=== PATIENT | female | born 1960 | race Caucasian/White ===

== ENCOUNTER 2018-11-05 04:00 | Observation (INO) | payer BC ==
[2018-11-05 04:55] LABS: #Eosinphils 0.3 thou/uL (0.0-0.7); #Lymphocytes 0.7 thou/uL (1.20-3.40); #Monocytes 0.9 thou/uL (0.11-0.59); #Neutrophils 8.6 thou/uL (1.40-6.50); %Basophils 0.3 % (0.0-1.0); %Eosinophils 2.6 % (0.0-10.0); %Monocytes 8.6 % (0.0-10.0); %Neutrophils 81.6 % (42.0-75.0); Hemoglobin 14.3 g/dL (12.0-16.0); Mean Corpuscular HGB CONC 32.5 g/dL (32.0-36.0); Mean Corpuscular Hemoglobin 29.9 pg (27.0-31.0); Mean Platelet Volume 7.6 fL (7.4-10.4); Platelet Count 243 thou/uL (130-400); RBC Distribution Width 13.3 % (11.5-14.5); Red Blood Cell (RBC) Count 4.77 mill/uL (4.20-5.40); White Blood Cell (WBC) Count 10.5 thou/uL (4.8-10.8)
[2018-11-05 05:17] LABS: ALT (SGPT) 19 U/L (8-55); AST (SGOT) 16 U/L (5-34); Albumin 4.3 g/dL (3.5-5.0); Alkaline Phosphatase 128 U/L (40-150); Anion Gap 12 mmol/L (10-20); BUN (Urea Nitrogen) 21 mg/dL (9.8-20.1); Bilirubin, Total 0.3 mg/dL (0.2-1.2); Calc. Creatinine Clearance 0 mL/min (70-130); Calcium 10.6 mg/dL (7.8-10.44); Carbon Dioxide 23 mmol/L (22-29); Chloride 109 mmol/L (98-107); Estimated GFR-MDRD 62; Globulin 2.3 g/dL (2.4-3.5); Glucose 117 mg/dL (70-105); Potassium 3.9 mmol/L (3.5-5.1); Protein, Total 6.6 g/dL (6.0-8.3); Sodium 140 mmol/L (136-145)
[2018-11-05] MEDS ORDERED: Nitroglycerin 0.4 MG TAB (25 Tab Bottle) PO PRN (07:18)
--- NOTE | 2018-11-05 07:57 | HP ---
PRIMARY CARE PROVIDER: Manny Thapa MD HISTORY: Referred to [facility] for chest pain, rule out NH. This morning at 3 o'clock, the patient has severe pressure chest pain in her chest, lasted 30 minutes. No sweats. Some shortness of breath. She notes that it is pleuritic in nature and still has some discomfort. States that the pain goes up into her neck and across into her jaw and across her back. She has had no nausea, no prior history of coronary artery disease. PAST MEDICAL HISTORY: Colon cancer in 2016, post resection ileostomy, and reversal of the ileostomy. She has had chemotherapy. She is currently has a diagnosis of hyperparathyroidism. Schedule for a nuclear medicine scan per physicians in [place]. She has a history of anxiety and depression. CURRENT MEDICATIONS: 1. Celexa 20 mg a day. 2. Valium 5 mg p.r.n. She takes very occasional. ALLERGIES: SHE IS ALLERGIC TO PENICILLIN CAUSES URTICARIA. FAMILY HISTORY: Mother has a pacemaker. No known true coronary artery disease. She has a paternal uncle with colon cancer. She is . Full code status. next of kin. Smokes a half a pack a day. Uses marijuana, because she does not like traditional pain medicines. REVIEW OF SYSTEMS: GENERAL: She is occasionally dizzy on arising. No fainting. No fever or chills. EYES: No double vision, blurred vision, or flashing lights. EAR, NOSE, AND THROAT: No ear pain or drainage. No nasal bleeding. No trouble swallowing. CARDIAC: See present illness. No orthopnea, paroxysmal nocturnal dyspnea. RESPIRATION: No cough, wheezing, or asthma. GASTROINTESTINAL: No nausea or vomiting. Current abdominal pain and diarrhea. She does have some chronic food discomfort depending on what she eats occasionally. MUSCULOSKELETAL: No pain or swelling in her legs. NEUROLOGICAL: No strokes, seizures, or focal weakness. PSYCHIATRIC: No anxiety or depression. Currently, she is on medications. SKIN: No bruising, bleeding, or rash. HEME/LYMPH: No tender or swollen lymph nodes in axilla, inguinal, or cervical area. PHYSICAL EXAMINATION: VITAL SIGNS: Blood pressure 100/65, pulse 74, respirations 18, temperature 97.8, currently without pain. HEENT: Examination of her head, eyes, ears, nose, and throat revealed pupils are equal, round, and reactive to light. Extraocular movements intact. Sclerae are white. Tympanic membranes clear. Nose is clear. Oral mucous membranes are wet. Dental hygiene is good. NECK: Supple without jugular venous distention, adenopathy, or thyromegaly. CHEST: Clear to auscultation and percussion. HEART: Had a regular rate and rhythm. First and second second heart sounds are clear. There are no appreciated murmurs or gallops. ABDOMEN: Soft. Bowel sounds are normal. There is no hepatosplenomegaly. No mass. No rebound. No bruits. She does have a scar in the right lower quadrant. EXTREMITIES: Reveal no cyanosis, clubbing, or edema. PULSES: Carotid, radial, femoral, and dorsalis pedis pulses intact and symmetric. SKIN: Warm and dry without bruises or rash. HEME/LYMPH: No tender or swollen lymph nodes in axilla, inguinal, or cervical area. NEUROLOGICAL: Cranial nerves 2 through 12 are intact. Deep tendon reflexes symmetric. Moves all extremities DIAGNOSTIC STUDIES: EKG regular sinus rhythm. No ST-T abnormality, within normal limits, reviewed by me. Chest x-ray, no cardiomegaly, CHF, infiltrate, or effusion reviewed by me. LABORATORY DATA: Comprehensive metabolic profile normal except for chloride of 109, BUN 21, glucose 117, and calcium 10.6. CBC is unremarkable. ADMITTING DIAGNOSES: 1. Atypical chest pain, suspect pleuritic. 2. History of colon cancer. 3. Hyperparathyroidism with hypercalcemia. 4. Tobacco abuse. PLAN: Aspirin. Serial enzymes. Cardiolite stress test if normal will discharge on NSAIDs. I have confirmed that she knows she should not be smoking. Job ID: [id number]
[2018-11-05 08:10] LABS: Troponin I Less than 0.010 ng/mL (< 0.028)
[2018-11-05] MEDS ORDERED: Aspirin 325 mg Enteric Coated Tablet PO SCH (09:00)
--- NOTE | 2018-11-05 09:00 | RAD ---
SINGLE VIEW OF THE CHEST: COMPARISON: None. HISTORY: Chest pain. FINDINGS: Single view of the chest shows a normal sized cardiomediastinal silhouette. There is no evidence of c onsolidation, mass, or pleural effusion. Degenerative changes are seen in the spine. IMPRESSION: No evidence of acute cardiopulmonary disease. POS: [facility]
[2018-11-05] MEDS ORDERED: ADENOSINE 60 MG/20 ML VIAL ONE (09:47)
[2018-11-05 11:13] LABS: Troponin I Less than 0.010 ng/mL (< 0.028)
--- NOTE | 2018-11-05 12:43 | NM ---
EXAM: Cardiac SPECT HISTORY: Chest pain PROTOCOL: Stress only, single isotope TYPE OF STRESS: Pharmacologic stress with adenosine was monitored and interpreted by Dr. Mejía. RADIOPHARMACEUTICAL: 32.5 mCi technetium 99m-sestamibi injected intravenously FINDINGS: Homogeneous tracer distribution is seen in the myocardial segments on the post stress images. Gated SPECT LVEF: 81% Wall motion exam: Normal IMPRESSION: Normal post stress myocardial perfusion scan.
[2018-11-05] MEDS ORDERED: Aspirin 325 MG TAB ONE (12:58)
--- NOTE | 2018-11-06 08:37 | DIS ---
DATE OF ADMISSION: 11/05/2018 DATE OF DISCHARGE: 11/05/2018 PRIMARY CARE PHYSICIAN: Dr. Thapa. Discharged home. FINAL DIAGNOSES: Pleuritic chest pain, history of colon cancer, hyperparathyroidism, tobacco abuse, and hypercalcemia. DISCHARGE MEDICATIONS: The patient was instructed to either take ibuprofen or naproxen [id number] for her chest pain. She takes Celexa 20 mg a day. ALLERGIES: PENICILLIN CAUSES URTICARIA. PENDING AT TIME OF DISCHARGE: Nothing. CODE STATUS: Full. DIET: As tolerated. HOSPITAL COURSE: The patient presented to the emergency room with pleuritic chest pain. EKG was unrevealing. Serial enzymes were normal. She underwent a cardiac stress test, which is normal. On my initial conversation with her, I had indicated I thought this was a pleuritic pain and not a cardiac pain. Chest x-ray is clear. Laboratory was really unremarkable. Normal CBC. Minimal changes on comprehensive metabolic profile, glucose 117 and calcium 10.6. Discussed the diagnosis with her. She is comfortable with the discharge. She has been asked to follow up with Dr. Thapa within 1 week. Job ID: [id number]
== END 2018-11-05 14:00 | disposition home or self-care (01) ==
LOC: ERS 04:00 → ERHOLD 06:56
PROVIDERS: ADMIT Internal Medicine; ATTEND Internal Medicine
DX: R07.1 Chest pain on breathing (principal); F41.9 Anxiety disorder, unspecified; F32.9 Major depressive disorder, single episode, unspecified; E21.3 Hyperparathyroidism, unspecified; F17.210 Nicotine dependence, cigarettes, uncomplicated; Z85.038 Personal history of other malignant neoplasm of large intestine; Z79.899 Other long term (current) drug therapy; Z88.0 Allergy status to penicillin; Z90.49 Acquired absence of other specified parts of digestive tract
CPT/HCPCS: 36415; 71045; 78452; 80053; 84484; 85025; 93005; 93017; A9500; G0378; J0153

== ENCOUNTER 2020-10-29 04:11 | Emergency (ER) | payer BC, SELFPAY ==
[2020-10-29] MEDS ORDERED: Boostrix 0.5 ML (Tdap) VIAL ONE (05:16)
== END 2020-10-29 06:04 | disposition home or self-care (01) ==
LOC: ERS 04:11
DX: L02.412 Cutaneous abscess of left axilla (principal); L73.9 Follicular disorder, unspecified; F17.210 Nicotine dependence, cigarettes, uncomplicated; Z79.899 Other long term (current) drug therapy
CPT/HCPCS: 90471; 90715

== ENCOUNTER 2022-07-20 08:01 | Emergency (ER) | payer SELFPAY ==
[2022-07-20] MEDS ORDERED: Ketorolac Tromethamine 30 MG/ML VIAL ONE (12:20)
[2022-07-20] MEDS ORDERED: Acetaminophen 500 MG TAB ONE (12:20)
== END 2022-07-20 12:39 | disposition home or self-care (01) ==
LOC: ERS 08:01
DX: M79.604 Pain in right leg (principal); F17.210 Nicotine dependence, cigarettes, uncomplicated
CPT/HCPCS: 36415; 85379; 96372; J1885

== ENCOUNTER 2023-10-16 06:43 | Day surgery (SDC) | payer OTHER ==
[2023-10-15 09:21] VITALS: BMI 32.2
[2023-10-16 08:34] LABS: #Basophils 0.07 10x3/uL (0.0-0.2); %Basophils 0.8 % (0.0-1.0); %Eosinophils 2.5 % (0.0-10.0); %Lymphocytes 8.7 % (21.0-51.0); %Monocytes 8.8 % (0.0-10.0); %Neutrophils 78.4 % (42.0-75.0); Hematocrit 40.6 % (36.0-47.0); Hemoglobin 13.1 g/dL (12.0-16.0); Mean Corpuscular HGB CONC 32.3 g/dL (32.0-36.0); Mean Corpuscular Hemoglobin 27.1 pg (27.0-31.0); Mean Corpuscular Volume 84.1 fL (78.0-98.0); Mean Platelet Volume 9.8 fL (7.4-10.4); Platelet Count 393 10x3/uL (130-400); RBC Distribution Width 14.3 % (11.5-14.5); Red Blood Cell (RBC) Count 4.83 mill/uL (4.20-5.40)
[2023-10-16 09:02] LABS: PTT 30.7 sec (22.9-36.1); Prothrombin Time 13.5 sec (12.0-14.7)
[2023-10-16 09:49] LABS: Anion Gap 20 mmol/L (10-20); BUN (Urea Nitrogen) 10 mg/dL (9.8-20.1); Calc. Creatinine Clearance 108 mL/min (70-130); Carbon Dioxide 23 mmol/L (23-31); Chloride 100 mmol/L (98-107); Estimated GFR 91; Glucose 103 mg/dL (80-115); Potassium 3.1 mmol/L (3.5-5.1); Sodium 140 mmol/L (136-145)
[2023-10-16 12:22] LABS: Calcium 9.6 mg/dL (7.8-10.44)
== END 2023-10-16 14:05 | disposition home or self-care (01) ==
LOC: SDC 06:43
PROVIDERS: ATTEND Urology
PROC: 0T778ZZ Dilation of Left Ureter, Via Natural or Artificial Opening Endoscopic (ICD-10-PCS; principal; 2023-10-16)
DX: N13.5 Crossing vessel and stricture of ureter without hydronephrosis (principal); N20.0 Calculus of kidney; Z87.891 Personal history of nicotine dependence; Z79.899 Other long term (current) drug therapy
CPT/HCPCS: 74018; 74420; 80048; 85025; 85610; 85730; 93005; 93010; C1747; C1769; C2617; J1100; J1885; J1956; J2001; J2250; J2405; J2704; J3010

== ENCOUNTER 2023-11-05 12:30 | Outpatient (CLI) | payer OTHER | END 2023-11-05 12:31 | disposition home or self-care (01) | LOC: PET 12:30 | PROVIDERS: ATTEND Internal Medicine | DX: C54.8 Malignant neoplasm of overlapping sites of corpus uteri (principal); C77.2 Secondary and unspecified malignant neoplasm of intra-abdominal lymph nodes; C77.5 Secondary and unspecified malignant neoplasm of intrapelvic lymph nodes; C77.0 Secondary and unspecified malignant neoplasm of lymph nodes of head, face and neck; C78.7 Secondary malignant neoplasm of liver and intrahepatic bile duct; K66.8 Other specified disorders of peritoneum | CPT/HCPCS: 78815; A9552 ==

== ENCOUNTER 2023-11-07 13:17 | Outpatient (CLI) | payer OTHER | END 2023-11-07 13:18 | disposition home or self-care (01) | LOC: MRI 13:17 → BICMRI 13:18 | PROVIDERS: ATTEND Internal Medicine | DX: C52 Malignant neoplasm of vagina (principal); C53.9 Malignant neoplasm of cervix uteri, unspecified; C77.5 Secondary and unspecified malignant neoplasm of intrapelvic lymph nodes; R93.89 Abnormal findings on diagnostic imaging of other specified body structures | CPT/HCPCS: 72197 ==

== ENCOUNTER 2023-12-07 13:24 | Inpatient (IN) | payer OTHER ==
[2023-12-07 14:10] LABS: #Basophils 0.03 10x3/uL (0.0-0.2); %Basophils 0.9 % (0.0-1.0); %Eosinophils 2.5 % (0.0-10.0); %Lymphocytes 9.9 % (21.0-51.0); %Monocytes 15.2 % (0.0-10.0); %Neutrophils 68.4 % (42.0-75.0); Hematocrit 32.6 % (36.0-47.0); Hemoglobin 10.5 g/dL (12.0-16.0); Mean Corpuscular HGB CONC 32.2 g/dL (32.0-36.0); Mean Corpuscular Hemoglobin 27.8 pg (27.0-31.0); Mean Corpuscular Volume 86.2 fL (78.0-98.0); Platelet Count 164 10x3/uL (130-400); RBC Distribution Width 16.4 % (11.5-14.5); Red Blood Cell (RBC) Count 3.78 mill/uL (4.20-5.40)
[2023-12-07 14:29] LABS: ALT (SGPT) 20 U/L (8-55); AST (SGOT) 20 U/L (5-34); Albumin 2.8 g/dL (3.4-4.8); Alkaline Phosphatase 87 U/L (40-110); Anion Gap 12 mmol/L (10-20); BUN (Urea Nitrogen) 9 mg/dL (9.8-20.1); Bilirubin, Total 0.7 mg/dL (0.2-1.2); Calc. Creatinine Clearance 0 mL/min (70-130); Calcium 8.4 mg/dL (7.8-10.44); Carbon Dioxide 31 mmol/L (23-31); Chloride 100 mmol/L (98-107); Estimated GFR 89; Globulin 3.2 g/dL (2.4-3.5); Glucose 106 mg/dL (80-115); Magnesium 1.6 mg/dL (1.6-2.6); Potassium 3.2 mmol/L (3.5-5.1); Sodium 140 mmol/L (136-145)
[2023-12-07] MEDS ORDERED: Lidocaine 2% Viscous 100 ML BOTTLE SSP SCH (14:45)
[2023-12-07] MEDS ORDERED: diphenhydrAMINE 12.5 MG/5 ML UDCUP ONE (14:53)
[2023-12-07] MEDS ORDERED: Potassium Bicarbonate/Cit Ac 20 MEQ TAB ONE (17:05)
[2023-12-07] MEDS ORDERED: Ondansetron PF 4 MG/2 ML Vial IVP PRN (18:44)
[2023-12-07] MEDS ORDERED: Acetaminophen 325 MG TAB PO PRN (18:44)
[2023-12-07] MEDS ORDERED: Ondansetron ODT 4 MG TAB PO PRN (18:44)
[2023-12-07 19:38] VITALS: BMI 29.7
[2023-12-07] MEDS: HYDROcodone/Acetaminophen 10/325 mg Tablet PO SCH (20:46)
[2023-12-07] MEDS: Potassium Phosphate 30 MMOL in Sodium Chloride 0.9% 500 ML IVPB SCH (21:18)
[2023-12-07] MEDS: Lidocaine Viscous Sol 2% 15 ml UD Cup SSW SCH (21:20)
[2023-12-07] MEDS: Lidocaine Viscous Sol 2% 15 ml UD Cup SSP SCH (21:20)
[2023-12-07 22:12] LABS: Phosphorus 3.6 mg/dL (2.3-4.7)
[2023-12-07] MEDS ORDERED: Docusate 100 MG CAP PO PRN (23:36)
[2023-12-07] MEDS: MAGIC MOUTH WASH W/NYSTATIN SUSP 10 ML UDCUP SSP SCH (23:42)
[2023-12-08] MEDS: HYDROcodone/Acetaminophen 10/325 mg Tablet PO PRN (05:06)
[2023-12-08 05:21] LABS: Hematocrit 30.8 % (36.0-47.0); Hemoglobin 9.8 g/dL (12.0-16.0); Mean Corpuscular HGB CONC 31.8 g/dL (32.0-36.0); Mean Corpuscular Hemoglobin 27.5 pg (27.0-31.0); Mean Corpuscular Volume 86.3 fL (78.0-98.0); Mean Platelet Volume 9.2 fL (7.4-10.4); Platelet Count 162 10x3/uL (130-400); RBC Distribution Width 16.7 % (11.5-14.5); Red Blood Cell (RBC) Count 3.57 mill/uL (4.20-5.40)
[2023-12-08 05:38] LABS: Anion Gap 14 mmol/L (10-20); BUN (Urea Nitrogen) 8 mg/dL (9.8-20.1); Calc. Creatinine Clearance 105 mL/min (70-130); Calcium 7.9 mg/dL (7.8-10.44); Carbon Dioxide 27 mmol/L (23-31); Chloride 103 mmol/L (98-107); Estimated GFR 96; Glucose 101 mg/dL (80-115); Potassium 3.3 mmol/L (3.5-5.1); Sodium 141 mmol/L (136-145)
[2023-12-08 05:58] LABS: Anisocytosis SLIGHT = 6-15 cells HPF (0-5); Band 4 % (5-11); Elliptocytes SLIGHT = 2-5 cells HPF (0-1); Eosinophils 1 % (0-10); Large Platelets 2.9 % (0-5); Lymphocytes 14 % (21-51); Metamyelocyte 2 % (0-0); Monocytes 9 % (0-10); Myelocyte 2 % (0-0); Neutrophil 67 % (42-75); Platelet Adequacy Comment Platelets Normal; Polychromasia SLIGHT = 2-3 cells HPF (0-2); Reactive Lymphocytes 1 % (0-10); Smudge Cells 22.1 %
[2023-12-08] MEDS: Enoxaparin 40 MG (0.4 mL) SYRINGE SC SCH (08:36)
[2023-12-08] MEDS ORDERED: Electrolyte Replacement Protocol FS PRN (12:30)
[2023-12-08] MEDS ORDERED: Electrolyte Replacement Protocol 1 EACH FS SCH (12:30)
[2023-12-08] MEDS: Nystatin 500,000 UNITS/5 ML UDCUP SSW SCH (14:33)
[2023-12-08] MEDS: diphenhydrAMINE 50 MG/ML VIAL IVP SCH (14:33)
[2023-12-08] MEDS: methylPREDNISolone Sod Succ 40 MG VIAL IVP SCH (14:34)
[2023-12-08] MEDS: Magnesium 2 GM/50 ML(in water) 2 GM in Premix 1 BAG IVPB SCH (14:34)
[2023-12-08] MEDS: Potassium Chloride 20 MEQ TAB PO SCH (14:43)
[2023-12-08] MEDS ORDERED: Milk Of Magnesia 30 ML UDCUP PO PRN (17:42)
[2023-12-09 06:42] LABS: Hematocrit 31.2 % (36.0-47.0); Hemoglobin 9.9 g/dL (12.0-16.0); Mean Corpuscular HGB CONC 31.7 g/dL (32.0-36.0); Mean Corpuscular Hemoglobin 27.3 pg (27.0-31.0); Mean Platelet Volume 9.5 fL (7.4-10.4); Platelet Count 205 10x3/uL (130-400); RBC Distribution Width 16.4 % (11.5-14.5); Red Blood Cell (RBC) Count 3.63 mill/uL (4.20-5.40)
[2023-12-09 07:25] LABS: Anion Gap 16 mmol/L (10-20); BUN (Urea Nitrogen) 9 mg/dL (9.8-20.1); Calc. Creatinine Clearance 103 mL/min (70-130); Calcium 8.7 mg/dL (7.8-10.44); Carbon Dioxide 25 mmol/L (23-31); Chloride 102 mmol/L (98-107); Estimated GFR 94; Glucose 163 mg/dL (80-115); Magnesium 2.1 mg/dL (1.6-2.6); Potassium 4.6 mmol/L (3.5-5.1); Sodium 138 mmol/L (136-145)
[2023-12-09 07:56] LABS: Band 7 % (5-11); Large Platelets 9.9 % (0-5); Lymphocytes 6 % (21-51); Monocytes 6 % (0-10); Neutrophil 80 % (42-75); Platelet Adequacy Comment Platelets Normal; RBC Morphology Within Normal Limits
[2023-12-09] MEDS: Ascorbic Acid 500 mg Chewable Tablet PO SCH (14:34)
[2023-12-09] MEDS: Multivit, Therapeutic 1 TAB PO SCH (14:35)
[2023-12-09] MEDS: Zinc Sulfate 220 MG CAP PO SCH (14:35)
[2023-12-09] MEDS: Pantoprazole DR 40 MG TAB PO SCH (15:30)
[2023-12-09 15:53] VITALS: BMI 29.7
[2023-12-09] MEDS ORDERED: Hydrocortisone 2.5%/Pramoxine 1% CRM 30 GM TUBE TOP PRN (21:15)
[2023-12-09] MEDS: Hydrocortisone 2.5%/Pramoxine 1% CRM 30 GM TUBE TOP PRN (23:21)
[2023-12-10 04:50] LABS: Hematocrit 30.6 % (36.0-47.0); Hemoglobin 9.9 g/dL (12.0-16.0); Mean Corpuscular HGB CONC 32.4 g/dL (32.0-36.0); Mean Corpuscular Hemoglobin 27.3 pg (27.0-31.0); Mean Corpuscular Volume 84.3 fL (78.0-98.0); Mean Platelet Volume 9.5 fL (7.4-10.4); Platelet Count 250 10x3/uL (130-400); RBC Distribution Width 16.5 % (11.5-14.5); Red Blood Cell (RBC) Count 3.63 mill/uL (4.20-5.40)
[2023-12-10 05:15] LABS: Anion Gap 16 mmol/L (10-20); BUN (Urea Nitrogen) 15 mg/dL (9.8-20.1); Calc. Creatinine Clearance 92 mL/min (70-130); Calcium 8.8 mg/dL (7.8-10.44); Carbon Dioxide 24 mmol/L (23-31); Chloride 101 mmol/L (98-107); Estimated GFR 82; Glucose 146 mg/dL (80-115); Magnesium 2.1 mg/dL (1.6-2.6); Potassium 4.6 mmol/L (3.5-5.1); Sodium 136 mmol/L (136-145)
[2023-12-10 06:17] LABS: Band 6 % (5-11); Lymphocytes 2 % (21-51); Neutrophil 92 % (42-75); Platelet Adequacy Comment Platelets Normal; RBC Morphology Within Normal Limits
[2023-12-10] MEDS: Ascorbic Acid 500 mg Chewable Tablet PO SCH (08:51)
[2023-12-10] MEDS: Multivit, Therapeutic 1 TAB PO SCH (08:52)
[2023-12-10] MEDS: Pantoprazole DR 40 MG TAB PO SCH (08:53)
[2023-12-10] MEDS: Zinc Sulfate 220 MG CAP PO SCH (08:56)
[2023-12-10] MEDS: Lactulose 20 GM (30 mL) UDCUP PO SCH (14:13)
[2023-12-10] MEDS: Lactated Ringer's 1,000 ML IV SCH (14:17)
[2023-12-10] MEDS: MAGIC MOUTH WASH W/NYSTATIN SUSP 10 ML UDCUP SSP PRN (17:37)
[2023-12-10] MEDS: Calamine/Zinc Oxide 177 ML LOTION TP SCH (21:30)
[2023-12-11 04:57] LABS: Hematocrit 28.9 % (36.0-47.0); Hemoglobin 9.3 g/dL (12.0-16.0); Mean Corpuscular HGB CONC 32.2 g/dL (32.0-36.0); Mean Corpuscular Hemoglobin 27.9 pg (27.0-31.0); Mean Corpuscular Volume 86.8 fL (78.0-98.0); Mean Platelet Volume 9.3 fL (7.4-10.4); Platelet Count 261 10x3/uL (130-400); RBC Distribution Width 16.8 % (11.5-14.5); Red Blood Cell (RBC) Count 3.33 mill/uL (4.20-5.40)
[2023-12-11 05:25] LABS: Anion Gap 13 mmol/L (10-20); BUN (Urea Nitrogen) 19 mg/dL (9.8-20.1); Calc. Creatinine Clearance 87 mL/min (70-130); Calcium 8.7 mg/dL (7.8-10.44); Carbon Dioxide 23 mmol/L (23-31); Chloride 105 mmol/L (98-107); Estimated GFR 77; Glucose 172 mg/dL (80-115); Potassium 4.4 mmol/L (3.5-5.1); Sodium 137 mmol/L (136-145)
[2023-12-11 05:34] LABS: Anisocytosis SLIGHT = 6-15 cells HPF (0-5); Band 2 % (5-11); Lymphocytes 7 % (21-51); Metamyelocyte 3 % (0-0); Microcytosis SLIGHT = 6-15 cells HPF (0-5); Monocytes 6 % (0-10); Neutrophil 82 % (42-75); Nucleated RBC (Manual Ct) 3 % (0); Platelet Adequacy Comment Platelets Normal; Polychromasia SLIGHT = 2-3 cells HPF (0-2); Smudge Cells 15.2 %
[2023-12-11] MEDS: Apixaban 5 MG TAB PO SCH (18:25)
[2023-12-11] MEDS: methylPREDNISolone Sod Succ 40 MG VIAL IVP SCH (20:33)
[2023-12-12 08:48] LABS: Anion Gap 15 mmol/L (10-20); BUN (Urea Nitrogen) 19 mg/dL (9.8-20.1); Calc. Creatinine Clearance 90 mL/min (70-130); Calcium 9.1 mg/dL (7.8-10.44); Carbon Dioxide 24 mmol/L (23-31); Chloride 106 mmol/L (98-107); Estimated GFR 80; Glucose 116 mg/dL (80-115); Sodium 141 mmol/L (136-145)
[2023-12-12] MEDS: Apixaban 5 MG TAB PO SCH (09:29)
[2023-12-12 10:11] LABS: Hematocrit 37.8 % (36.0-47.0); Hemoglobin 11.5 g/dL (12.0-16.0); Mean Corpuscular HGB CONC 30.4 g/dL (32.0-36.0); Mean Corpuscular Hemoglobin 27.6 pg (27.0-31.0); Mean Corpuscular Volume 90.6 fL (78.0-98.0); Mean Platelet Volume 9.6 fL (7.4-10.4); Platelet Count 378 10x3/uL (130-400); RBC Distribution Width 17.8 % (11.5-14.5); Red Blood Cell (RBC) Count 4.17 mill/uL (4.20-5.40)
[2023-12-12 11:17] LABS: Anisocytosis SLIGHT = 6-15 cells HPF (0-5); Band 5 % (5-11); Burr Cells SLIGHT = 2-5 cells HPF (0-1); Lymphocytes 14 % (21-51); Macrocytosis SLIGHT = 6-15 cells HPF (0-5); Metamyelocyte 3 % (0-0); Monocytes 5 % (0-10); Myelocyte 2 % (0-0); Neutrophil 72 % (42-75); Ovalocytes SLIGHT = 2-5 cells HPF (0-1); Platelet Adequacy Comment Platelets Normal; Polychromasia SLIGHT = 2-3 cells HPF (0-2); Smudge Cells 4.9 %
[2023-12-12] MEDS: MAGIC MOUTH WASH W/NYSTATIN SUSP 10 ML UDCUP SSW SCH ×2 (13:13→16:28)
[2023-12-12] MEDS ORDERED: Aluminum & Magnesium Hydroxide 60 ML, diphenhydrAMINE 150 MG, Lidocaine 2% Viscous Solu... SSW SCH (17:00)
[2023-12-12] MEDS: Lactulose 20 GM (30 mL) UDCUP PO PRN (20:55)
[2023-12-13 05:14] LABS: Mean Corpuscular HGB CONC 32.3 g/dL (32.0-36.0); Mean Corpuscular Hemoglobin 27.9 pg (27.0-31.0); Mean Corpuscular Volume 86.6 fL (78.0-98.0); Mean Platelet Volume 9.6 fL (7.4-10.4); Platelet Count 299 10x3/uL (130-400); RBC Distribution Width 17.5 % (11.5-14.5); Red Blood Cell (RBC) Count 3.58 mill/uL (4.20-5.40)
[2023-12-13 05:42] LABS: Band 8 % (5-11); Eosinophils 2 % (0-10); Hypochromia SLIGHT = 6-15 cells HPF (0-5); Lymphocytes 5 % (21-51); Metamyelocyte 4 % (0-0); Monocytes 3 % (0-10); Myelocyte 2 % (0-0); Neutrophil 75 % (42-75); Nucleated RBC (Manual Ct) 1 % (0); Platelet Adequacy Comment Platelets Normal; Polychromasia SLIGHT = 2-3 cells HPF (0-2); Promyelocytes 1 % (0-0)
[2023-12-13 16:45] VITALS: BP 150/86; TEMP 97.6
== END 2023-12-13 17:01 | disposition home or self-care (01) | DRG 158 ==
LOC: ERS 13:24 → MSONC 17:38 → OBSVTOIN 12-09 16:10
PROVIDERS: ADMIT Family Medicine; ATTEND Family Medicine
DX: B37.0 Candidal stomatitis (principal); I82.402 Acute embolism and thrombosis of unspecified deep veins of left lower extremity; C54.1 Malignant neoplasm of endometrium; L27.0 Generalized skin eruption due to drugs and medicaments taken internally; D70.1 Agranulocytosis secondary to cancer chemotherapy; T45.1X5A Adverse effect of antineoplastic and immunosuppressive drugs, initial encounter; R73.9 Hyperglycemia, unspecified; R13.10 Dysphagia, unspecified; F17.290 Nicotine dependence, other tobacco product, uncomplicated; D63.0 Anemia in neoplastic disease; E87.6 Hypokalemia; R53.1 Weakness; Z88.0 Allergy status to penicillin; Z88.8 Allergy status to other drugs, medicaments and biological substances; Z79.899 Other long term (current) drug therapy; Z90.49 Acquired absence of other specified parts of digestive tract; Z98.890 Other specified postprocedural states; Z98.891 History of uterine scar from previous surgery; Z85.038 Personal history of other malignant neoplasm of large intestine; Z92.21 Personal history of antineoplastic chemotherapy; Z92.3 Personal history of irradiation; Z85.048 Personal history of other malignant neoplasm of rectum, rectosigmoid junction, and anus
CPT/HCPCS: 36415; 80048; 80053; 83735; 84100; 84145; 85025; 86141; 96365; 96366; 96372; 96375; 96376; 97139; 99284; G0378; J1200; J1650; J2920; J3475; J7030; J7120; Q0163

== ENCOUNTER 2023-12-20 21:18 | Inpatient (IN) | payer OTHER ==
[2023-12-20 22:16] LABS: #Basophils 0.04 10x3/uL (0.0-0.2); %Basophils 0.3 % (0.0-1.0); %Eosinophils 0.6 % (0.0-10.0); %Lymphocytes 2.7 % (21.0-51.0); %Monocytes 1.8 % (0.0-10.0); Hematocrit 35.1 % (36.0-47.0); Hemoglobin 11.3 g/dL (12.0-16.0); Mean Corpuscular HGB CONC 32.2 g/dL (32.0-36.0); Mean Corpuscular Hemoglobin 28.2 pg (27.0-31.0); Mean Corpuscular Volume 87.5 fL (78.0-98.0); Platelet Count 217 10x3/uL (130-400); Red Blood Cell (RBC) Count 4.01 mill/uL (4.20-5.40)
[2023-12-20 22:33] LABS: ALT (SGPT) 21 U/L (8-55); AST (SGOT) 21 U/L (5-34); Albumin 3.6 g/dL (3.4-4.8); Alkaline Phosphatase 80 U/L (40-110); Anion Gap 14 mmol/L (10-20); BUN (Urea Nitrogen) 12 mg/dL (9.8-20.1); Bilirubin, Total 0.7 mg/dL (0.2-1.2); Calc. Creatinine Clearance 0 mL/min (70-130); Calcium 9.1 mg/dL (7.8-10.44); Carbon Dioxide 21 mmol/L (23-31); Chloride 102 mmol/L (98-107); Estimated GFR 80; Globulin 3.2 g/dL (2.4-3.5); Glucose 149 mg/dL (80-115); Lipase 11 U/L (8-78); Potassium 2.9 mmol/L (3.5-5.1); Protein, Total 6.8 g/dL (5.8-8.1); Sodium 134 mmol/L (136-145)
[2023-12-20 23:53] LABS: Magnesium 1.8 mg/dL (1.6-2.6)
[2023-12-21] LABS: INR-International Normal Ratio 1.2; Prothrombin Time 15.3 sec (12.0-14.7)
[2023-12-21 00:01] LABS: PTT 30.1 sec (22.9-36.1)
[2023-12-21] MEDS ORDERED: Potassium Chloride 20 MEQ TAB ONE (00:16)
[2023-12-21] MEDS ORDERED: Ondansetron PF 4 MG/2 ML Vial ONE ×2 (00:16→03:50)
[2023-12-21] MEDS ORDERED: Morphine 4 MG/ML VIAL ONE (00:16)
[2023-12-21] MEDS ORDERED: Potassium Chloride 20 MEQ (100 mL) BAG ONE (00:16)
[2023-12-21] MEDS ORDERED: Ondansetron PF 4 MG/2 ML Vial IVP PRN ×2 (04:30→10:06)
[2023-12-21] MEDS ORDERED: Acetaminophen 325 MG TAB PO PRN ×2 (04:30→10:06)
[2023-12-21 05:15] LABS: Bilirubin Negative (Negative); Blood, Urine Negative (Negative); Clarity Clear (Clear); Glucose, Urine (Dipstick) Normal (Negative); Ketone, Urine Negative (Negative); Leukocyte 250 Leu/uL (Negative); Nitrite Negative (Negative); Protein, Urine (Dipstick) Negative (Neg-Trace); RBC/HPF 0-3 HPF (0-3); Specific Gravity, Urine 1.024 (1.002-1.036); Squamous Epithelial 0-3 HPF (0-3); Urobilinogen Normal mg/dL (Less than 2); WBC/HPF 21-50 HPF (0-3); pH, Urine 5.5 (5.0-9.0)
[2023-12-21 05:16] LABS: Bacteria/HPF 1+ HPF (None Seen); Urine Culture Reflex Yes Yes
[2023-12-21 05:34] VITALS: BMI 28.8
[2023-12-21] MEDS: Ondansetron ODT 4 MG TAB SL PRN (09:02)
[2023-12-21] MEDS ORDERED: PRAMOXINE PR PRN (10:01)
[2023-12-21] MEDS ORDERED: Non-Formulary Item 1 EACH (Prochlorperazine Maleate [Compazine] 10 MG Tab) PO PRN (10:01)
[2023-12-21] MEDS ORDERED: HYDROCORTISONE ACETATE PR PRN (10:01)
[2023-12-21] MEDS ORDERED: Aquaphor 10 GM TUBE TOP PRN (10:01)
[2023-12-21] MEDS ORDERED: Ondansetron ODT 4 MG TAB PO PRN (10:06)
[2023-12-21] MEDS ORDERED: Acetaminophen 650 MG Suppository PR PRN (10:06)
[2023-12-21] MEDS: HYDROcodone/Acetaminophen 10/325 mg Tablet PO PRN (10:18)
[2023-12-21] MEDS ORDERED: Hydrocortisone 2.5%/Pramoxine 1% CRM 30 GM TUBE PR PRN (10:38)
[2023-12-21] MEDS: 1/2 NS w/Potassium 20 mEq 1,000 ML IV SCH (10:53)
[2023-12-21] MEDS: Pantoprazole DR 40 MG TAB PO SCH (10:53)
[2023-12-21] MEDS: Apixaban 5 MG TAB PO SCH ×2 (10:53→21:25)
[2023-12-21 10:55] LABS: Magnesium 1.8 mg/dL (1.6-2.6)
[2023-12-21] MEDS: LevoFLOXacin 750 mg/D5W 750 MG in Premix 1 BAG IVPB SCH (11:00)
[2023-12-21] MEDS: Prochlorperazine Maleate 5 MG TAB PO PRN (11:44)
[2023-12-21] MEDS ORDERED: Iopamidol-370 76% 500 ML MDV (1 ML CHARGE) ONE (12:12)
[2023-12-21] MEDS: hydrOXYzine 25 MG TAB PO SCH (15:16)
[2023-12-21 15:43] LABS: Anion Gap 10 mmol/L (10-20); BUN (Urea Nitrogen) 11 mg/dL (9.8-20.1); Calc. Creatinine Clearance 94 mL/min (70-130); Calcium 8.7 mg/dL (7.8-10.44); Carbon Dioxide 26 mmol/L (23-31); Chloride 101 mmol/L (98-107); Estimated GFR 90; Glucose 125 mg/dL (80-115); Potassium 3.3 mmol/L (3.5-5.1); Sodium 134 mmol/L (136-145)
[2023-12-21] MEDS: Calamine/Zinc Oxide 177 ML LOTION TP SCH (16:30)
[2023-12-21] MEDS: Dexamethasone 4 mg/ml Vial SLOW IVP SCH ×2 (16:30→21:26)
[2023-12-21] MEDS: Aluminum & Magnesium Hydroxide 60 ML, diphenhydrAMINE 150 MG, Lidocaine 2% Viscous Solu... SSW PRN (21:38)
[2023-12-21 23:50] LABS: Campy jejuni + coli by PCR Negative (Negative); STEC Shiga Toxin 1+2 Negative (Negative); Salmonella spp. by PCR Negative (Negative); Shigella spp + EIEC by PCR Negative (Negative)
[2023-12-22 03:43] LABS: #Basophils Less than 0.03 10x3/uL (0.0-0.2); #Eosinphils Less than 0.03 10x3/uL (0.0-0.7); %Eosinophils 0.4 % (0.0-10.0); %Lymphocytes 5.3 % (21.0-51.0); %Monocytes 1.1 % (0.0-10.0); %Neutrophils 92.4 % (42.0-75.0); Hematocrit 32.3 % (36.0-47.0); Hemoglobin 10.3 g/dL (12.0-16.0); Mean Corpuscular HGB CONC 31.9 g/dL (32.0-36.0); Mean Corpuscular Hemoglobin 28.5 pg (27.0-31.0); Mean Corpuscular Volume 89.2 fL (78.0-98.0); Mean Platelet Volume 10.4 fL (7.4-10.4); Platelet Count 195 10x3/uL (130-400); Red Blood Cell (RBC) Count 3.62 mill/uL (4.20-5.40)
[2023-12-22] MEDS: Morphine 2 MG/ML VIAL SLOW IVP SCH (05:29)
[2023-12-22 06:54] LABS: ALT (SGPT) 14 U/L (8-55); AST (SGOT) 15 U/L (5-34); Albumin 3.1 g/dL (3.4-4.8); Alkaline Phosphatase 68 U/L (40-110); Anion Gap 13 mmol/L (10-20); BUN (Urea Nitrogen) 12 mg/dL (9.8-20.1); Bilirubin, Total 0.4 mg/dL (0.2-1.2); Calc. Creatinine Clearance 90 mL/min (70-130); Carbon Dioxide 24 mmol/L (23-31); Chloride 102 mmol/L (98-107); Estimated GFR 85; Glucose 149 mg/dL (80-115); Protein, Total 6.1 g/dL (5.8-8.1); Sodium 135 mmol/L (136-145)
[2023-12-22] MEDS: Pantoprazole DR 40 MG TAB PO SCH (08:33)
[2023-12-22] MEDS: fentaNYL 25 mcg Patch TD SCH (10:46)
[2023-12-22] MEDS ORDERED: Electrolyte Replacement Protocol 1 EACH FS SCH (16:45)
[2023-12-22] MEDS: Magnesium 2 GM/50 ML(in water) 2 GM in Premix 1 BAG IVPB SCH (21:37)
[2023-12-22] MEDS: diphenhydrAMINE 25 MG CAP PO PRN (21:51)
[2023-12-23 05:12] LABS: #Basophils Less than 0.03 10x3/uL (0.0-0.2); #Eosinphils Less than 0.03 10x3/uL (0.0-0.7); %Eosinophils 0.3 % (0.0-10.0); %Lymphocytes 5.8 % (21.0-51.0); %Monocytes 1.8 % (0.0-10.0); %Neutrophils 91.3 % (42.0-75.0); Anion Gap 13 mmol/L (10-20); BUN (Urea Nitrogen) 16 mg/dL (9.8-20.1); Calc. Creatinine Clearance 86 mL/min (70-130); Calcium 8.9 mg/dL (7.8-10.44); Carbon Dioxide 24 mmol/L (23-31); Chloride 101 mmol/L (98-107); Estimated GFR 81; Glucose 152 mg/dL (80-115); Hematocrit 27.7 % (36.0-47.0); Magnesium 2.1 mg/dL (1.6-2.6); Mean Corpuscular HGB CONC 32.5 g/dL (32.0-36.0); Mean Corpuscular Hemoglobin 27.7 pg (27.0-31.0); Mean Corpuscular Volume 85.2 fL (78.0-98.0); Mean Platelet Volume 10.7 fL (7.4-10.4); Platelet Count 183 10x3/uL (130-400); Potassium 4.1 mmol/L (3.5-5.1); RBC Distribution Width 18.7 % (11.5-14.5); Red Blood Cell (RBC) Count 3.25 mill/uL (4.20-5.40); Sodium 134 mmol/L (136-145)
[2023-12-23] MEDS: Lactulose 20 GM (30 mL) UDCUP PO PRN (10:44)
[2023-12-23 13:56] VITALS: BMI 28.8
[2023-12-23] MEDS: Sodium Chloride 0.9% 1,000 ML IV SCH (15:34)
[2023-12-24 04:13] LABS: #Basophils Less than 0.03 10x3/uL (0.0-0.2); #Eosinphils Less than 0.03 10x3/uL (0.0-0.7); %Lymphocytes 8.1 % (21.0-51.0); %Monocytes 1.6 % (0.0-10.0); Hematocrit 28.2 % (36.0-47.0); Hemoglobin 9.2 g/dL (12.0-16.0); Mean Corpuscular HGB CONC 32.6 g/dL (32.0-36.0); Mean Corpuscular Hemoglobin 28.8 pg (27.0-31.0); Mean Corpuscular Volume 88.1 fL (78.0-98.0); Mean Platelet Volume 10.2 fL (7.4-10.4); Platelet Count 172 10x3/uL (130-400); RBC Distribution Width 18.6 % (11.5-14.5)
[2023-12-24 04:33] VITALS: TEMP 97.7
[2023-12-24 11:37] VITALS: BP 118/67
== END 2023-12-24 16:05 | disposition home or self-care (01) | DRG 755 ==
LOC: ERS 21:18 → 2SW 12-21 04:19 → OBSVTOIN 12-22 16:31
PROVIDERS: ADMIT Student in an Organized Health Care Education/Training Program; ATTEND Family Medicine
DX: C54.1 Malignant neoplasm of endometrium (principal); C19 Malignant neoplasm of rectosigmoid junction; R45.851 Suicidal ideations; C78.7 Secondary malignant neoplasm of liver and intrahepatic bile duct; C77.2 Secondary and unspecified malignant neoplasm of intra-abdominal lymph nodes; N30.00 Acute cystitis without hematuria; I82.402 Acute embolism and thrombosis of unspecified deep veins of left lower extremity; F31.9 Bipolar disorder, unspecified; E87.6 Hypokalemia; Z90.49 Acquired absence of other specified parts of digestive tract; Z88.0 Allergy status to penicillin; Z88.8 Allergy status to other drugs, medicaments and biological substances; Z79.899 Other long term (current) drug therapy; Z98.890 Other specified postprocedural states; Z51.5 Encounter for palliative care
CPT/HCPCS: 36415; 71045; 74177; 80048; 80053; 81001; 83605; 83690; 83735; 85025; 85610; 85730; 87077; 87086; 87186; 87505; 93005; 96374; 96375; 96376; G0378; J1100; J1956; J2270; J2272; J2405; J3475; J3480; J7050; Q0162; Q0163; Q0164; Q9967

== ENCOUNTER 2024-02-08 11:11 | Inpatient (IN) | payer OTHER ==
[2024-02-08] MEDS ORDERED: HYDROmorphone 0.5 MG/0.5 ML SYRINGE ONE ×2 (12:44→16:58)
[2024-02-08] MEDS ORDERED: Promethazine HCl 25 MG/ML VIAL ONE (12:45)
[2024-02-08 13:40] LABS: Hematocrit 36.9 % (36.0-47.0); Mean Corpuscular HGB CONC 32.5 g/dL (32.0-36.0); Mean Corpuscular Hemoglobin 29.6 pg (27.0-31.0); Mean Corpuscular Volume 91.1 fL (78.0-98.0); Mean Platelet Volume 10.8 fL (7.4-10.4); Platelet Count 450 10x3/uL (130-400); RBC Distribution Width 19.9 % (11.5-14.5); Red Blood Cell (RBC) Count 4.05 mill/uL (4.20-5.40)
[2024-02-08 13:47] LABS: ALT (SGPT) 17 U/L (8-55); AST (SGOT) 22 U/L (5-34); Albumin 3.2 g/dL (3.4-4.8); Alkaline Phosphatase 126 U/L (40-110); Anion Gap 17 mmol/L (10-20); BUN (Urea Nitrogen) 15 mg/dL (9.8-20.1); Bilirubin, Total 0.7 mg/dL (0.2-1.2); Calc. Creatinine Clearance 0 mL/min (70-130); Calcium 8.7 mg/dL (7.8-10.44); Carbon Dioxide 22 mmol/L (23-31); Chloride 100 mmol/L (98-107); Estimated GFR 83; Glucose 190 mg/dL (80-115); Potassium 3.9 mmol/L (3.5-5.1); Protein, Total 6.2 g/dL (5.8-8.1); Sodium 135 mmol/L (136-145)
[2024-02-08 14:33] LABS: Anisocytosis SLIGHT = 6-15 cells HPF (0-5); Band 3 % (5-11); Lymphocytes 1 % (21-51); Metamyelocyte 8 % (0-0); Monocytes 1 % (0-10); Myelocyte 4 % (0-0); Neutrophil 84 % (42-75); Ovalocytes SLIGHT = 2-5 cells HPF (0-1); Platelet Adequacy Comment Platelets Increased; Polychromasia SLIGHT = 2-3 cells HPF (0-2); Tear Drops SLIGHT = 2-5 cells HPF (0-1)
[2024-02-08] MEDS ORDERED: Iopamidol-370 76% 500 ML MDV (1 ML CHARGE) ONE (14:47)
[2024-02-08] MEDS ORDERED: Piperacillin/Tazobactam 3.375 GM VIAL ONE (16:58)
[2024-02-08] MEDS ORDERED: Metoclopramide HCl 10 MG (2 mL) VIAL ONE (16:58)
[2024-02-08] MEDS ORDERED: Sodium Chloride 0.9% 100 ML ONE (17:01)
[2024-02-08 17:15] LABS: Bacteria/HPF None Seen HPF (None Seen); Bilirubin Negative (Negative); Blood, Urine Negative (Negative); CAUTI Indications for Culture Fever or rigors; Clarity Clear (Clear); Glucose, Urine (Dipstick) Normal (Negative); Ketone, Urine Negative (Negative); Leukocyte Negative Leu/uL (Negative); Nitrite Negative (Negative); Protein, Urine (Dipstick) Negative (Neg-Trace); RBC/HPF 0-3 HPF (0-3); Specific Gravity, Urine 1.037 (1.002-1.036); Squamous Epithelial 0-3 HPF (0-3); WBC/HPF 0-3 HPF (0-3)
[2024-02-08 17:16] LABS: Urine Culture Reflex No No
[2024-02-08] MEDS ORDERED: Promethazine HCl 25 MG in Sodium Chloride 0.9% 50 ML IVPB PRN (17:51)
[2024-02-08] MEDS ORDERED: Morphine 2 MG/ML VIAL SLOW IVP PRN (17:54)
[2024-02-08] MEDS ORDERED: Electrolyte Replacement Protocol 1 EACH FS SCH (18:00)
[2024-02-08] MEDS ORDERED: HYDROcodone/Acetaminophen 5/325 mg Tablet PO PRN (18:06)
[2024-02-08] MEDS: Sodium Chloride 0.9% 1,000 ML IV SCH (19:18)
[2024-02-08] MEDS: Ondansetron PF 4 MG/2 ML Vial IVP SCH ×2 (19:19→21:37)
[2024-02-08] MEDS: Apixaban 5 MG TAB PO SCH (20:01)
[2024-02-08 20:04] VITALS: BMI 27.0
[2024-02-08] MEDS: D5 LR w/20 mEq KCL 1,000 ML IV SCH (20:15)
[2024-02-08] MEDS: Pantoprazole 40 MG VIAL IVP SCH (20:16)
[2024-02-08] MEDS: Nystatin Powder 15 GM BOT TOP SCH (20:16)
[2024-02-08] MEDS ORDERED: Electrolyte Replacement Protocol FS PRN (20:30)
[2024-02-08] MEDS ORDERED: Pantoprazole 40 MG VIAL IVP SCH (21:00)
[2024-02-08] MEDS ORDERED: Piperacillin/Tazobactam 3.375 GM in Sodium Chloride 0.9% 100 ML IVPB SCH (21:00)
[2024-02-08] MEDS: Ciprofloxacin Lactate/D5W 400 MG in Premix 1 BAG IVPB SCH (21:37)
[2024-02-08] MEDS: fentaNYL 25 mcg Patch TD SCH (21:37)
[2024-02-08 22:01] LABS: Phosphorus 4.2 mg/dL (2.3-4.7)
[2024-02-08] MEDS: HYDROcodone/Acetaminophen 10/325 mg Tablet PO PRN (23:04)
[2024-02-08] MEDS: metroNIDAZOLE 500 MG in Premix 1 BAG IVPB SCH (23:05)
[2024-02-08 23:53] LABS: Critical Call Chem-Lactate D; Lactic Acid 4.62 mmol/L (0.5-2.2)
[2024-02-08 23:54] LABS: Anion Gap 16 mmol/L (10-20); BUN (Urea Nitrogen) 15 mg/dL (9.8-20.1); Calc. Creatinine Clearance 77 mL/min (70-130); Calcium 7.9 mg/dL (7.8-10.44); Carbon Dioxide 20 mmol/L (23-31); Chloride 102 mmol/L (98-107); Estimated GFR 78; Glucose 172 mg/dL (80-115); Magnesium 1.8 mg/dL (1.6-2.6); Potassium 4.4 mmol/L (3.5-5.1); Sodium 134 mmol/L (136-145)
[2024-02-09] MEDS: Magnesium 2 GM/50 ML(in water) 2 GM in Premix 1 BAG IVPB SCH (03:32)
[2024-02-09 05:03] LABS: Hematocrit 29.3 % (36.0-47.0); Hemoglobin 9.6 g/dL (12.0-16.0); Mean Corpuscular HGB CONC 32.8 g/dL (32.0-36.0); Mean Corpuscular Hemoglobin 29.3 pg (27.0-31.0); Mean Corpuscular Volume 89.3 fL (78.0-98.0); Mean Platelet Volume 11.3 fL (7.4-10.4); Platelet Count 283 10x3/uL (130-400); RBC Distribution Width 19.9 % (11.5-14.5); Red Blood Cell (RBC) Count 3.28 mill/uL (4.20-5.40)
[2024-02-09 05:20] LABS: Lactic Acid 3.27 mmol/L (0.5-2.2)
[2024-02-09 05:24] LABS: ALT (SGPT) 11 U/L (8-55); AST (SGOT) 14 U/L (5-34); Albumin 2.3 g/dL (3.4-4.8); Alkaline Phosphatase 81 U/L (40-110); Anion Gap 11 mmol/L (10-20); BUN (Urea Nitrogen) 15 mg/dL (9.8-20.1); Bilirubin, Total 0.5 mg/dL (0.2-1.2); Calc. Creatinine Clearance 92 mL/min (70-130); Calcium 7.8 mg/dL (7.8-10.44); Carbon Dioxide 24 mmol/L (23-31); Chloride 103 mmol/L (98-107); Estimated GFR 95; Globulin 2.5 g/dL (2.4-3.5); Glucose 150 mg/dL (80-115); Potassium 4.3 mmol/L (3.5-5.1); Protein, Total 4.8 g/dL (5.8-8.1); Sodium 134 mmol/L (136-145)
[2024-02-09 06:06] LABS: Anisocytosis SLIGHT = 6-15 cells HPF (0-5); Band 14 % (5-11); Burr Cells SLIGHT = 2-5 cells HPF (0-1); Lymphocytes 4 % (21-51); Macrocytosis SLIGHT = 6-15 cells HPF (0-5); Metamyelocyte 6 % (0-0); Monocytes 2 % (0-10); Myelocyte 6 % (0-0); Neutrophil 68 % (42-75); Ovalocytes SLIGHT = 2-5 cells HPF (0-1); Platelet Adequacy Comment Platelets Normal; Polychromasia SLIGHT = 2-3 cells HPF (0-2); Smudge Cells 2.9 %; Tear Drops SLIGHT = 2-5 cells HPF (0-1); Vacuoles SLIGHT
[2024-02-09] MEDS: Apixaban 5 MG TAB PO SCH (08:21)
[2024-02-09] MEDS ORDERED: fentaNYL 25 mcg Patch TD SCH (09:00)
[2024-02-09] MEDS: Loperamide HCl 2 MG CAP PO SCH (09:03)
[2024-02-09 13:15] LABS: Campy jejuni + coli by PCR Negative (Negative); STEC Shiga Toxin 1+2 Negative (Negative); Salmonella spp. by PCR Negative (Negative); Shigella spp + EIEC by PCR Negative (Negative)
[2024-02-09] MEDS ORDERED: Loperamide HCl 2 MG CAP PO PRN (15:07)
[2024-02-09] MEDS: Calcium Carbonate 500 MG ChewTAB PO PRN (17:25)
[2024-02-10 05:11] LABS: Hematocrit 23.5 % (36.0-47.0); Hemoglobin 7.6 g/dL (12.0-16.0); Mean Corpuscular HGB CONC 32.3 g/dL (32.0-36.0); Mean Corpuscular Hemoglobin 30.3 pg (27.0-31.0); Mean Corpuscular Volume 93.6 fL (78.0-98.0); Mean Platelet Volume 11.4 fL (7.4-10.4); Platelet Count 167 10x3/uL (130-400); RBC Distribution Width 19.9 % (11.5-14.5); Red Blood Cell (RBC) Count 2.51 mill/uL (4.20-5.40)
[2024-02-10 05:29] LABS: ALT (SGPT) 7 U/L (8-55); AST (SGOT) 13 U/L (5-34); Albumin 2.1 g/dL (3.4-4.8); Alkaline Phosphatase 64 U/L (40-110); Anion Gap 8 mmol/L (10-20); BUN (Urea Nitrogen) 6 mg/dL (9.8-20.1); Bilirubin, Total 0.3 mg/dL (0.2-1.2); Calc. Creatinine Clearance 100 mL/min (70-130); Calcium 8.2 mg/dL (7.8-10.44); Carbon Dioxide 28 mmol/L (23-31); Chloride 103 mmol/L (98-107); Estimated GFR 99; Globulin 2.3 g/dL (2.4-3.5); Glucose 91 mg/dL (80-115); Magnesium 1.6 mg/dL (1.6-2.6); Potassium 3.7 mmol/L (3.5-5.1); Protein, Total 4.4 g/dL (5.8-8.1); Sodium 135 mmol/L (136-145)
[2024-02-10 06:06] LABS: Anisocytosis MARKED = >30 cells HPF (0-5); Band 8 % (5-11); Eosinophils 3 % (0-10); Hypochromia SLIGHT = 6-15 cells HPF (0-5); Lymphocytes 8 % (21-51); Macrocytosis MODERATE=16-30 cells HPF (0-5); Metamyelocyte 4 % (0-0); Myelocyte 4 % (0-0); Neutrophil 74 % (42-75); Platelet Adequacy Comment Platelets Normal; Polychromasia SLIGHT = 2-3 cells HPF (0-2); Rouleaux Formation SLIGHT = 1-5 cells HPF (None Seen); Tear Drops SLIGHT = 2-5 cells HPF (0-1); Toxic Granulation MODERATE
[2024-02-10] MEDS: Magnesium 2 GM/50 ML(in water) 2 GM in Premix 1 BAG IVPB SCH (06:38)
[2024-02-10] MEDS ORDERED: D5 LR w/20 mEq KCL 1,000 ML IV SCH (09:15)
[2024-02-10] MEDS: Pantoprazole DR 40 MG TAB PO SCH (21:26)
[2024-02-11 05:27] LABS: Hematocrit 25.2 % (36.0-47.0); Hemoglobin 8.1 g/dL (12.0-16.0); Mean Corpuscular HGB CONC 32.1 g/dL (32.0-36.0); Mean Corpuscular Hemoglobin 30.2 pg (27.0-31.0); Mean Platelet Volume 11.6 fL (7.4-10.4); Platelet Count 161 10x3/uL (130-400); RBC Distribution Width 19.9 % (11.5-14.5); Red Blood Cell (RBC) Count 2.68 mill/uL (4.20-5.40)
[2024-02-11 05:46] LABS: Anion Gap 12 mmol/L (10-20); BUN (Urea Nitrogen) Less than 4 mg/dL (9.8-20.1); Calc. Creatinine Clearance 92 mL/min (70-130); Calcium 8.3 mg/dL (7.8-10.44); Carbon Dioxide 28 mmol/L (23-31); Chloride 101 mmol/L (98-107); Estimated GFR 95; Glucose 70 mg/dL (80-115); Potassium 3.6 mmol/L (3.5-5.1); Sodium 137 mmol/L (136-145)
[2024-02-11 06:02] LABS: Band 7 % (5-11); Dohle Bodies SLIGHT; Elliptocytes SLIGHT = 2-5 cells HPF (0-1); Hypochromia SLIGHT = 6-15 cells HPF (0-5); Lymphocytes 15 % (21-51); Macrocytosis SLIGHT = 6-15 cells HPF (0-5); Metamyelocyte 2 % (0-0); Monocytes 2 % (0-10); Myelocyte 1 % (0-0); Neutrophil 72 % (42-75); Platelet Adequacy Comment Platelets Normal; Polychromasia SLIGHT = 2-3 cells HPF (0-2); Target Cells SLIGHT = 2-5 cells HPF (0-1); Tear Drops SLIGHT = 2-5 cells HPF (0-1); Toxic Granulation SLIGHT
[2024-02-11] MEDS: Acetaminophen 325 MG TAB PO PRN (16:08)
[2024-02-11] MEDS: fentaNYL 25 mcg Patch TD SCH (20:13)
[2024-02-11] MEDS: Loperamide HCl 2 MG CAP PO PRN (20:13)
[2024-02-12 05:33] LABS: Phosphorus 3.3 mg/dL (2.3-4.7)
[2024-02-12 05:38] LABS: Anion Gap 13 mmol/L (10-20); BUN (Urea Nitrogen) 4 mg/dL (9.8-20.1); Calc. Creatinine Clearance 100 mL/min (70-130); Calcium 8.1 mg/dL (7.8-10.44); Carbon Dioxide 27 mmol/L (23-31); Chloride 102 mmol/L (98-107); Estimated GFR 99; Glucose 75 mg/dL (80-115); Magnesium 1.4 mg/dL (1.6-2.6); Potassium 3.6 mmol/L (3.5-5.1); Sodium 138 mmol/L (136-145)
[2024-02-12 07:24] LABS: Mean Corpuscular Hemoglobin 29.2 pg (27.0-31.0); Mean Corpuscular Volume 91.2 fL (78.0-98.0); Mean Platelet Volume 11.6 fL (7.4-10.4); Platelet Count 165 10x3/uL (130-400); RBC Distribution Width 19.4 % (11.5-14.5); Red Blood Cell (RBC) Count 2.74 mill/uL (4.20-5.40)
[2024-02-12] MEDS: Potassium Bicarbonate/Cit Ac 20 MEQ TAB PO SCH (09:07)
[2024-02-12 11:18] LABS: Band 11 % (5-11); Eosinophils 1 % (0-10); Large Platelets 2.9 % (0-5); Lymphocytes 11 % (21-51); Monocytes 15 % (0-10); Neutrophil 61 % (42-75); Platelet Adequacy Comment Platelets Normal; RBC Morphology Within Normal Limits
[2024-02-12] MEDS: Magnesium Sulfate In Water 4 GM in Premix 1 BAG IVPB SCH (11:34)
[2024-02-12] MEDS: Sodium Chloride 0.9% 1,000 ML IV SCH (15:29)
[2024-02-12] MEDS: Mirabegron ER 25 MG ER.TAB PO SCH (21:43)
[2024-02-13 04:23] LABS: Hematocrit 26.3 % (36.0-47.0); Hemoglobin 8.6 g/dL (12.0-16.0); Mean Corpuscular HGB CONC 32.7 g/dL (32.0-36.0); Mean Corpuscular Hemoglobin 30.1 pg (27.0-31.0); Mean Platelet Volume 10.7 fL (7.4-10.4); Platelet Count 162 10x3/uL (130-400); RBC Distribution Width 19.5 % (11.5-14.5); Red Blood Cell (RBC) Count 2.86 mill/uL (4.20-5.40)
[2024-02-13 04:36] LABS: Anion Gap 13 mmol/L (10-20); BUN (Urea Nitrogen) Less than 4 mg/dL (9.8-20.1); Calc. Creatinine Clearance 98 mL/min (70-130); Calcium 8.1 mg/dL (7.8-10.44); Carbon Dioxide 25 mmol/L (23-31); Chloride 104 mmol/L (98-107); Estimated GFR 99; Glucose 86 mg/dL (80-115); Magnesium 1.8 mg/dL (1.6-2.6); Potassium 3.1 mmol/L (3.5-5.1); Sodium 139 mmol/L (136-145)
[2024-02-13 04:52] LABS: Anisocytosis SLIGHT = 6-15 cells HPF (0-5); Band 22 % (5-11); Burr Cells SLIGHT = 2-5 cells HPF (0-1); Dohle Bodies SLIGHT; Elliptocytes SLIGHT = 2-5 cells HPF (0-1); Lymphocytes 8 % (21-51); Monocytes 4 % (0-10); Myelocyte 1 % (0-0); Neutrophil 63 % (42-75); Platelet Adequacy Comment Platelets Normal; Polychromasia SLIGHT = 2-3 cells HPF (0-2); Promyelocytes 3 % (0-0); Stomatocytes SLIGHT = 2-5 cells HPF (0-1); Tear Drops SLIGHT = 2-5 cells HPF (0-1); Toxic Granulation MODERATE
[2024-02-13] MEDS: Magnesium 2 GM/50 ML(in water) 2 GM in Premix 1 BAG IVPB SCH (08:51)
[2024-02-13] MEDS: Mirabegron ER 25 MG ER.TAB PO SCH (09:00)
[2024-02-13] MEDS: Ondansetron PF 4 MG/2 ML Vial IVP PRN (09:02)
[2024-02-13] MEDS: Potassium Bicarbonate/Cit Ac 20 MEQ TAB PO SCH ×2 (09:04→15:41)
[2024-02-13] MEDS: Morphine 2 MG/ML VIAL SLOW IVP SCH (10:16)
[2024-02-13] MEDS: Potassium Chloride 20 MEQ in Premix 1 BAG IVPB SCH (10:18)
[2024-02-13] MEDS: Potassium Chloride 20 MEQ in Lactated Ringer's 1,000 ML IV SCH ×2 (10:18→18:30)
[2024-02-13] MEDS ORDERED: Diphenoxylate HCl/Atropine Tablet PO PRN (15:18)
[2024-02-13] MEDS: Diphenoxylate HCl/Atropine Tablet PO SCH (15:38)
[2024-02-14 08:57] LABS: Hematocrit 26.9 % (36.0-47.0); Hemoglobin 8.3 g/dL (12.0-16.0); Mean Corpuscular HGB CONC 30.9 g/dL (32.0-36.0); Mean Corpuscular Hemoglobin 29.9 pg (27.0-31.0); Mean Corpuscular Volume 96.8 fL (78.0-98.0); Mean Platelet Volume 11.4 fL (7.4-10.4); Platelet Count 160 10x3/uL (130-400); RBC Distribution Width 20.1 % (11.5-14.5); Red Blood Cell (RBC) Count 2.78 mill/uL (4.20-5.40)
[2024-02-14 09:09] LABS: Anion Gap 12 mmol/L (10-20); BUN (Urea Nitrogen) 4 mg/dL (9.8-20.1); Calc. Creatinine Clearance 105 mL/min (70-130); Calcium 8.3 mg/dL (7.8-10.44); Carbon Dioxide 26 mmol/L (23-31); Chloride 105 mmol/L (98-107); Estimated GFR 100; Glucose 59 mg/dL (80-115); Magnesium 1.8 mg/dL (1.6-2.6); Potassium 3.7 mmol/L (3.5-5.1); Sodium 139 mmol/L (136-145)
[2024-02-14 09:19] LABS: Anisocytosis SLIGHT = 6-15 cells HPF (0-5); Band 17 % (5-11); Hypochromia SLIGHT = 6-15 cells HPF (0-5); Lymphocytes 3 % (21-51); Monocytes 5 % (0-10); Neutrophil 75 % (42-75); Platelet Adequacy Comment Platelets Normal; Poikilocytosis SLIGHT = 6-15 cells HPF (0-5); Polychromasia SLIGHT = 2-3 cells HPF (0-2)
[2024-02-14] MEDS: metroNIDAZOLE 500 MG TAB PO SCH ×2 (10:35→14:22)
[2024-02-14] MEDS: Cipro 250 MG TAB PO SCH ×2 (10:55→20:19)
[2024-02-14] MEDS: Magnesium 2 GM/50 ML(in water) 2 GM in Premix 1 BAG IVPB SCH (14:20)
[2024-02-14 17:30] VITALS: BMI 27.0
[2024-02-14] MEDS: Ondansetron ODT 4 MG TAB PO PRN (19:23)
[2024-02-15 06:09] LABS: Hematocrit 25.3 % (36.0-47.0); Hemoglobin 8.2 g/dL (12.0-16.0); Mean Corpuscular HGB CONC 32.4 g/dL (32.0-36.0); Mean Corpuscular Hemoglobin 30.5 pg (27.0-31.0); Mean Corpuscular Volume 94.1 fL (78.0-98.0); Mean Platelet Volume 10.3 fL (7.4-10.4); Platelet Count 139 10x3/uL (130-400); Red Blood Cell (RBC) Count 2.69 mill/uL (4.20-5.40)
[2024-02-15 06:17] LABS: Anion Gap 14 mmol/L (10-20); BUN (Urea Nitrogen) 5 mg/dL (9.8-20.1); Calc. Creatinine Clearance 98 mL/min (70-130); Calcium 8.4 mg/dL (7.8-10.44); Carbon Dioxide 26 mmol/L (23-31); Chloride 103 mmol/L (98-107); Estimated GFR 99; Glucose 71 mg/dL (80-115); Potassium 3.6 mmol/L (3.5-5.1); Sodium 139 mmol/L (136-145)
[2024-02-15 06:25] LABS: Band 12 % (5-11); Lymphocytes 7 % (21-51); Macrocytosis SLIGHT = 6-15 cells HPF (0-5); Metamyelocyte 1 % (0-0); Monocytes 8 % (0-10); Neutrophil 70 % (42-75); Nucleated RBC (Manual Ct) 1 % (0); Platelet Adequacy Comment Platelets Normal; Poikilocytosis SLIGHT = 6-15 cells HPF (0-5); Polychromasia SLIGHT = 2-3 cells HPF (0-2); Reactive Lymphocytes 1 % (0-10)
[2024-02-15 07:00] LABS: Elliptocytes SLIGHT = 2-5 cells HPF (0-1)
[2024-02-16 05:18] LABS: Hemoglobin 8.2 g/dL (12.0-16.0); Mean Corpuscular HGB CONC 32.8 g/dL (32.0-36.0); Mean Corpuscular Hemoglobin 30.8 pg (27.0-31.0); Mean Platelet Volume 10.2 fL (7.4-10.4); Platelet Count 123 10x3/uL (130-400); RBC Distribution Width 20.3 % (11.5-14.5); Red Blood Cell (RBC) Count 2.66 mill/uL (4.20-5.40)
[2024-02-16 05:44] LABS: ALT (SGPT) 6 U/L (8-55); AST (SGOT) 13 U/L (5-34); Albumin 2.6 g/dL (3.4-4.8); Alkaline Phosphatase 116 U/L (40-110); Anion Gap 12 mmol/L (10-20); BUN (Urea Nitrogen) 5 mg/dL (9.8-20.1); Bilirubin, Total 0.3 mg/dL (0.2-1.2); Calc. Creatinine Clearance 97 mL/min (70-130); Calcium 8.2 mg/dL (7.8-10.44); Carbon Dioxide 29 mmol/L (23-31); Chloride 102 mmol/L (98-107); Estimated GFR 98; Globulin 2.2 g/dL (2.4-3.5); Glucose 77 mg/dL (80-115); Magnesium 1.6 mg/dL (1.6-2.6); Phosphorus 4.4 mg/dL (2.3-4.7); Potassium 3.1 mmol/L (3.5-5.1); Protein, Total 4.8 g/dL (5.8-8.1); Sodium 140 mmol/L (136-145)
[2024-02-16 06:22] LABS: Anisocytosis MARKED = >30 cells HPF (0-5); Band 11 % (5-11); Elliptocytes SLIGHT = 2-5 cells HPF (0-1); Lymphocytes 6 % (21-51); Macrocytosis MODERATE=16-30 cells HPF (0-5); Metamyelocyte 2 % (0-0); Monocytes 3 % (0-10); Neutrophil 78 % (42-75); Platelet Adequacy Comment Platelets Decreased; Polychromasia MODERATE = 3-4 cells HPF (0-2)
[2024-02-16] MEDS: Potassium Chloride 20 MEQ TAB PO SCH (09:11)
[2024-02-17 05:41] LABS: Hematocrit 24.8 % (36.0-47.0); Hemoglobin 7.9 g/dL (12.0-16.0); Mean Corpuscular HGB CONC 31.9 g/dL (32.0-36.0); Mean Corpuscular Hemoglobin 30.3 pg (27.0-31.0); Mean Platelet Volume 9.9 fL (7.4-10.4); Platelet Count 104 10x3/uL (130-400); RBC Distribution Width 20.3 % (11.5-14.5); Red Blood Cell (RBC) Count 2.61 mill/uL (4.20-5.40)
[2024-02-17 06:16] LABS: Anisocytosis SLIGHT = 6-15 cells HPF (0-5); Band 13 % (5-11); Hypochromia SLIGHT = 6-15 cells HPF (0-5); Lymphocytes 8 % (21-51); Monocytes 1 % (0-10); Neutrophil 78 % (42-75); Platelet Adequacy Comment Platelets Decreased; Poikilocytosis SLIGHT = 6-15 cells HPF (0-5); Polychromasia SLIGHT = 2-3 cells HPF (0-2); Stomatocytes SLIGHT = 2-5 cells HPF (0-1)
[2024-02-17 06:20] LABS: ALT (SGPT) 7 U/L (8-55); AST (SGOT) 13 U/L (5-34); Albumin 2.6 g/dL (3.4-4.8); Alkaline Phosphatase 103 U/L (40-110); Anion Gap 11 mmol/L (10-20); BUN (Urea Nitrogen) 5 mg/dL (9.8-20.1); Bilirubin, Total 0.2 mg/dL (0.2-1.2); Calc. Creatinine Clearance 94 mL/min (70-130); Calcium 8.2 mg/dL (7.8-10.44); Carbon Dioxide 28 mmol/L (23-31); Chloride 104 mmol/L (98-107); Estimated GFR 97; Globulin 2.3 g/dL (2.4-3.5); Glucose 82 mg/dL (80-115); Potassium 3.1 mmol/L (3.5-5.1); Protein, Total 4.9 g/dL (5.8-8.1); Sodium 140 mmol/L (136-145)
[2024-02-17] MEDS: Potassium Bicarbonate/Cit Ac 20 MEQ TAB PO SCH (10:27)
[2024-02-17 11:28] VITALS: BP 104/67; TEMP 98.1
== END 2024-02-17 12:25 | disposition home or self-care (01) | DRG 393 ==
LOC: ERS 11:11 → MSONC 17:01
PROVIDERS: ADMIT Internal Medicine; ATTEND Internal Medicine
DX: K52.1 Toxic gastroenteritis and colitis (principal); D61.810 Antineoplastic chemotherapy induced pancytopenia; E87.1 Hypo-osmolality and hyponatremia; N13.30 Unspecified hydronephrosis; E87.20 Acidosis, unspecified; C54.1 Malignant neoplasm of endometrium; T45.1X5A Adverse effect of antineoplastic and immunosuppressive drugs, initial encounter; E87.6 Hypokalemia; E83.42 Hypomagnesemia; R33.9 Retention of urine, unspecified; F41.9 Anxiety disorder, unspecified; F32.A Depression, unspecified; F39 Unspecified mood [affective] disorder; F31.9 Bipolar disorder, unspecified; E86.0 Dehydration; G89.4 Chronic pain syndrome; Z66 Do not resuscitate; Z88.0 Allergy status to penicillin; Z92.21 Personal history of antineoplastic chemotherapy; Z90.49 Acquired absence of other specified parts of digestive tract; Z88.1 Allergy status to other antibiotic agents; Z93.3 Colostomy status; Z86.718 Personal history of other venous thrombosis and embolism; Z87.891 Personal history of nicotine dependence; Z79.899 Other long term (current) drug therapy; Z79.01 Long term (current) use of anticoagulants; Z79.891 Long term (current) use of opiate analgesic
CPT/HCPCS: 36415; 51701; 71045; 74018; 74177; 80048; 80053; 81001; 83605; 83735; 84100; 85025; 85046; 86850; 86900; 86901; 87040; 87324; 87328; 87329; 87449; 87505; 93005; 96361; 96365; 96375; 96376; J0744; J1170; J1642; J2272; J2405; J2470; J2543; J2550; J2765; J3475; J3480; J7030; J7120; Q0162; Q9967

== ENCOUNTER 2024-03-02 09:48 | Inpatient (IN) | payer OTHER ==
[2024-03-02] MEDS ORDERED: Iopamidol-370 76% 500 ML MDV (1 ML CHARGE) ONE (10:55)
[2024-03-02 11:06] LABS: Hematocrit 28.1 % (36.0-47.0); Hemoglobin 9.2 g/dL (12.0-16.0); Mean Corpuscular HGB CONC 32.7 g/dL (32.0-36.0); Mean Corpuscular Hemoglobin 32.1 pg (27.0-31.0); Mean Corpuscular Volume 97.9 fL (78.0-98.0); Platelet Count 96 10x3/uL (130-400); RBC Distribution Width 20.1 % (11.5-14.5); Red Blood Cell (RBC) Count 2.87 mill/uL (4.20-5.40)
[2024-03-02] MEDS ORDERED: HYDROmorphone 0.5 MG/0.5 ML SYRINGE ONE (11:13)
[2024-03-02] MEDS ORDERED: Promethazine HCl 25 MG/ML VIAL ONE (11:13)
[2024-03-02 11:19] LABS: INR-International Normal Ratio 1.4; Prothrombin Time 16.7 sec (12.0-14.7)
[2024-03-02 11:20] LABS: PTT 36.3 sec (22.9-36.1)
[2024-03-02 11:44] LABS: ALT (SGPT) 7 U/L (8-55); AST (SGOT) 13 U/L (5-34); Alkaline Phosphatase 125 U/L (40-110); Anion Gap 16 mmol/L (10-20); BUN (Urea Nitrogen) 14 mg/dL (9.8-20.1); Bilirubin, Total 0.8 mg/dL (0.2-1.2); Calc. Creatinine Clearance 0 mL/min (70-130); Calcium 9.3 mg/dL (7.8-10.44); Carbon Dioxide 23 mmol/L (23-31); Chloride 98 mmol/L (98-107); Estimated GFR 75; Globulin 3.6 g/dL (2.4-3.5); Glucose 179 mg/dL (80-115); Lipase 8 U/L (8-78); Magnesium 1.4 mg/dL (1.6-2.6); Potassium 3.4 mmol/L (3.5-5.1); Protein, Total 6.6 g/dL (5.8-8.1); Sodium 134 mmol/L (136-145)
[2024-03-02 11:49] LABS: Troponin I Less than 0.010 ng/mL (< 0.028)
[2024-03-02 12:10] LABS: Influenza A by NAA Not Detected (NotDetected); Influenza B by NAA Not Detected (NotDetected); SARS-CoV-2 NAA Rapid Test Not Detected (NotDetected)
[2024-03-02 12:19] LABS: Band 11 % (5-11); Lymphocytes 4 % (21-51); Monocytes 1 % (0-10); Neutrophil 85 % (42-75); Platelet Adequacy Comment Platelets Decreased; RBC Morphology Within Normal Limits
[2024-03-02] MEDS ORDERED: Magnesium 2 GM/50 ML BAG (IN WATER) ONE (13:21)
[2024-03-02] MEDS ORDERED: Potassium Chloride 20 MEQ TAB ONE (14:12)
[2024-03-02 14:26] LABS: Lactic Acid 1.04 mmol/L (0.5-2.2)
[2024-03-02 14:54] LABS: Bilirubin Negative (Negative); Blood, Urine Negative (Negative); CAUTI Indications for Culture Fever or rigors; Clarity Clear (Clear); Glucose, Urine (Dipstick) Normal (Negative); Ketone, Urine Trace mg/dL (Negative); Leukocyte 75 Leu/uL (Negative); Nitrite Negative (Negative); Protein, Urine (Dipstick) 10 mg/dL (Neg-Trace); RBC/HPF 0-3 HPF (0-3); Squamous Epithelial 0-3 HPF (0-3); Urobilinogen Normal mg/dL (Less than 2); pH, Urine 7.5 (5.0-9.0)
[2024-03-02 14:59] LABS: Bacteria/HPF 1+ HPF (None Seen)
[2024-03-02 15:01] LABS: Urine Culture Reflex Yes Yes
[2024-03-02] MEDS ORDERED: Acetaminophen 650 MG Suppository PR PRN (16:32)
[2024-03-02] MEDS ORDERED: Ondansetron ODT 4 MG TAB PO PRN (16:32)
[2024-03-02] MEDS ORDERED: Piperacillin/Tazobactam 3.375 GM in Sodium Chloride 0.9% 100 ML IVPB SCH (16:45)
[2024-03-02] MEDS: Aztreonam 1 GM in Sodium Chloride 0.9% 100 ML IVPB SCH (17:39)
[2024-03-02] MEDS: Vancomycin (BATCH) 1.5 GM in Premix 1 BAG IVPB SCH (17:39)
[2024-03-02] MEDS: Morphine 2 MG/ML VIAL SLOW IVP SCH (17:53)
[2024-03-02] MEDS: Acetaminophen 325 MG TAB PO SCH ×2 (18:08→19:21)
[2024-03-02] MEDS: Potassium Chloride 20 MEQ in Lactated Ringer's 1,000 ML IV SCH (18:11)
[2024-03-02 18:14] VITALS: BMI 26.3
[2024-03-02 18:42] LABS: Troponin I 0.011 ng/mL (< 0.028)
[2024-03-02] MEDS: HYDROcodone/Acetaminophen 10/325 mg Tablet PO PRN (19:35)
[2024-03-02] MEDS: Ciprofloxacin Lactate/D5W 400 MG in Premix 1 BAG IVPB SCH (20:50)
[2024-03-02] MEDS: metroNIDAZOLE 500 MG in Premix 1 BAG IVPB SCH (20:52)
[2024-03-02] MEDS: Magnesium Sulfate In Water 4 GM in Premix 1 BAG IVPB SCH (23:09)
[2024-03-03 01:09] LABS: Troponin I Less than 0.010 ng/mL (< 0.028)
[2024-03-03 06:43] LABS: ALT (SGPT) 6 U/L (8-55); AST (SGOT) 10 U/L (5-34); Albumin 2.5 g/dL (3.4-4.8); Alkaline Phosphatase 98 U/L (40-110); Anion Gap 9 mmol/L (10-20); BUN (Urea Nitrogen) 8 mg/dL (9.8-20.1); Bilirubin, Total 0.3 mg/dL (0.2-1.2); Calc. Creatinine Clearance 88 mL/min (70-130); Calcium 8.4 mg/dL (7.8-10.44); Carbon Dioxide 27 mmol/L (23-31); Chloride 102 mmol/L (98-107); Estimated GFR 94; Globulin 2.9 g/dL (2.4-3.5); Glucose 96 mg/dL (80-115); Magnesium 2.7 mg/dL (1.6-2.6); Potassium 3.2 mmol/L (3.5-5.1); Protein, Total 5.4 g/dL (5.8-8.1); Sodium 135 mmol/L (136-145)
[2024-03-03 07:09] LABS: Hematocrit 21.2 % (36.0-47.0); Hemoglobin 6.8 g/dL (12.0-16.0); Mean Corpuscular HGB CONC 32.1 g/dL (32.0-36.0); Mean Corpuscular Hemoglobin 32.1 pg (27.0-31.0); Mean Platelet Volume 10.9 fL (7.4-10.4); Platelet Count 84 10x3/uL (130-400); RBC Distribution Width 20.2 % (11.5-14.5); Red Blood Cell (RBC) Count 2.12 mill/uL (4.20-5.40)
[2024-03-03 07:35] LABS: Band 13 % (5-11); Eosinophils 1 % (0-10); Hypochromia SLIGHT = 6-15 cells HPF (0-5); Lymphocytes 6 % (21-51); Macrocytosis SLIGHT = 6-15 cells HPF (0-5); Neutrophil 80 % (42-75); Platelet Adequacy Comment Platelets Decreased
[2024-03-03] MEDS: Saccharomyces boulardii 250 MG CAP PO SCH (08:37)
[2024-03-03] MEDS: Apixaban 5 MG TAB PO SCH (08:37)
[2024-03-03] MEDS: fentaNYL 25 mcg Patch TD SCH (08:38)
[2024-03-03] MEDS ORDERED: Nystatin Powder 15 GM BOT TOP PRN (08:53)
[2024-03-03] MEDS: Ondansetron PF 4 MG/2 ML Vial IVP PRN (09:00)
[2024-03-03] MEDS: Morphine 2 MG/ML VIAL SLOW IVP PRN (09:42)
[2024-03-03] MEDS: Potassium Chloride 20 MEQ in Premix 1 BAG IVPB SCH (10:39)
[2024-03-03] MEDS: Clotrimazole 1 % Cream 30 GM TUBE TOP SCH (12:35)
[2024-03-03 13:49] LABS: Campy jejuni + coli by PCR Negative (Negative); STEC Shiga Toxin 1+2 Negative (Negative); Salmonella spp. by PCR Negative (Negative); Shigella spp + EIEC by PCR Negative (Negative)
[2024-03-04 06:43] LABS: Hematocrit 26.6 % (36.0-47.0); Hemoglobin 8.8 g/dL (12.0-16.0); Mean Corpuscular HGB CONC 33.1 g/dL (32.0-36.0); Mean Corpuscular Hemoglobin 31.4 pg (27.0-31.0); Mean Platelet Volume 11.5 fL (7.4-10.4); Platelet Count 87 10x3/uL (130-400); RBC Distribution Width 21.4 % (11.5-14.5)
[2024-03-04 07:54] LABS: Anion Gap 12 mmol/L (10-20); BUN (Urea Nitrogen) 5 mg/dL (9.8-20.1); Band 5 % (5-11); Calc. Creatinine Clearance 98 mL/min (70-130); Calcium 8.3 mg/dL (7.8-10.44); Carbon Dioxide 26 mmol/L (23-31); Chloride 104 mmol/L (98-107); Estimated GFR 97; Glucose 78 mg/dL (80-115); Lymphocytes 8 % (21-51); Magnesium 1.6 mg/dL (1.6-2.6); Monocytes 1 % (0-10); Neutrophil 85 % (42-75); Platelet Adequacy Comment Platelets Decreased; Polychromasia SLIGHT = 2-3 cells HPF (0-2); Potassium 3.6 mmol/L (3.5-5.1); Sodium 138 mmol/L (136-145); Tear Drops SLIGHT = 2-5 cells HPF (0-1)
[2024-03-04] MEDS: Potassium Chloride 20 MEQ in Premix 1 BAG IVPB SCH (08:05)
[2024-03-04] MEDS ORDERED: Lactulose 20 GM (30 mL) UDCUP PO PRN (08:37)
[2024-03-04] MEDS ORDERED: Bisacodyl 10 MG SUPP PR PRN (08:38)
[2024-03-04] MEDS: Lactulose 20 GM (30 mL) UDCUP PO SCH (10:41)
[2024-03-04] MEDS: oxyCODONE 5 MG TAB PO PRN (12:04)
[2024-03-04] MEDS: cefTRIAXone\\ROCEPHIN 1 GM in Sodium Chloride 0.9% 100 ML IVPB SCH (12:04)
[2024-03-05 04:11] LABS: Hematocrit 31.2 % (36.0-47.0); Hemoglobin 10.1 g/dL (12.0-16.0); Mean Corpuscular HGB CONC 32.4 g/dL (32.0-36.0); Mean Corpuscular Hemoglobin 31.3 pg (27.0-31.0); Mean Corpuscular Volume 96.6 fL (78.0-98.0); Mean Platelet Volume 10.8 fL (7.4-10.4); Platelet Count 113 10x3/uL (130-400); RBC Distribution Width 21.2 % (11.5-14.5); Red Blood Cell (RBC) Count 3.23 mill/uL (4.20-5.40)
[2024-03-05 04:50] LABS: Anion Gap 13 mmol/L (10-20); BUN (Urea Nitrogen) Less than 4 mg/dL (9.8-20.1); Calc. Creatinine Clearance 95 mL/min (70-130); Carbon Dioxide 26 mmol/L (23-31); Chloride 104 mmol/L (98-107); Estimated GFR 95; Glucose 84 mg/dL (80-115); Magnesium 1.5 mg/dL (1.6-2.6); Potassium 4.4 mmol/L (3.5-5.1); Sodium 139 mmol/L (136-145)
[2024-03-05 06:47] LABS: Anisocytosis SLIGHT = 6-15 cells HPF (0-5); Band 6 % (5-11); Lymphocytes 17 % (21-51); Macrocytosis SLIGHT = 6-15 cells HPF (0-5); Monocytes 10 % (0-10); Neutrophil 66 % (42-75); Nucleated RBC (Manual Ct) 1 % (0); Platelet Adequacy Comment Platelets Decreased; Polychromasia SLIGHT = 2-3 cells HPF (0-2); Reactive Lymphocytes 1 % (0-10); Stomatocytes SLIGHT = 2-5 cells HPF (0-1)
[2024-03-05] MEDS: Magnesium 2 GM/50 ML(in water) 2 GM in Premix 1 BAG IVPB SCH (13:08)
[2024-03-05 15:36] VITALS: BP 110/58; TEMP 98.4
[2024-03-05 16:46] VITALS: BMI 27.2
== END 2024-03-05 16:05 | disposition home or self-care (01) | DRG 392 ==
LOC: ERS 09:48 → T4-A 16:47 → MSONC 03-03 14:58
PROVIDERS: ADMIT Internal Medicine; ATTEND Internal Medicine
PROC: 30233N1 Transfusion of Nonautologous Red Blood Cells into Peripheral Vein, Percutaneous Approach (ICD-10-PCS; principal; 2024-03-03)
DX: K52.29 Other allergic and dietetic gastroenteritis and colitis (principal); N39.0 Urinary tract infection, site not specified; G89.4 Chronic pain syndrome; F41.9 Anxiety disorder, unspecified; Z66 Do not resuscitate; C54.1 Malignant neoplasm of endometrium; J06.9 Acute upper respiratory infection, unspecified; B96.20 Unspecified Escherichia coli [E. coli] as the cause of diseases classified elsewhere; D64.9 Anemia, unspecified; E87.6 Hypokalemia; B35.4 Tinea corporis; Z88.0 Allergy status to penicillin; Z98.891 History of uterine scar from previous surgery; Z90.49 Acquired absence of other specified parts of digestive tract; Z98.890 Other specified postprocedural states; Z87.891 Personal history of nicotine dependence; Z92.21 Personal history of antineoplastic chemotherapy
CPT/HCPCS: 36415; 36430; 71045; 74177; 80048; 80053; 81001; 83605; 83690; 83735; 84145; 84484; 85025; 85610; 85730; 86850; 86900; 86901; 87040; 87077; 87086; 87186; 87324; 87449; 87505; 93005; 94760; 96361; 96365; 96367; 96375; J0457; J0696; J0744; J1170; J1642; J2272; J2405; J2550; J3370; J3475; J3480; J7120; P9016; P9040; Q9967

== ENCOUNTER 2024-03-12 11:00 | Outpatient (CLI) | payer OTHER | END 2024-03-12 11:01 | disposition home or self-care (01) | LOC: PET 11:00 | PROVIDERS: ATTEND Internal Medicine | DX: C55 Malignant neoplasm of uterus, part unspecified (principal); C78.7 Secondary malignant neoplasm of liver and intrahepatic bile duct; R91.8 Other nonspecific abnormal finding of lung field; R94.8 Abnormal results of function studies of other organs and systems | CPT/HCPCS: 78815; A9552 ==

== ENCOUNTER 2024-05-15 13:14 | Outpatient (CLI) | payer OTHER | END 2024-05-15 13:15 | disposition home or self-care (01) | LOC: PET 13:14 | PROVIDERS: ATTEND Internal Medicine | DX: C54.8 Malignant neoplasm of overlapping sites of corpus uteri (principal); R59.0 Localized enlarged lymph nodes; N13.30 Unspecified hydronephrosis | CPT/HCPCS: 72197; 78815; A9552 ==

== ENCOUNTER 2024-07-01 14:31 | Emergency (ER) | payer OTHER ==
[~2024-07-01 14:31] MED LIST: Iopamidol-370 76% 500 ML MDV (1 ML CHARGE) ONE
[2024-07-01 16:12] LABS: #Basophils 0.04 10x3/uL (0.0-0.2); %Basophils 0.6 % (0.0-1.0); %Eosinophils 0.8 % (0.0-10.0); %Monocytes 7.7 % (0.0-10.0); Hematocrit 47.1 % (36.0-47.0); Hemoglobin 16.2 g/dL (12.0-16.0); Mean Corpuscular HGB CONC 34.4 g/dL (32.0-36.0); Mean Corpuscular Hemoglobin 30.6 pg (27.0-31.0); Mean Corpuscular Volume 88.9 fL (78.0-98.0); Mean Platelet Volume 9.3 fL (7.4-10.4); Platelet Count 197 10x3/uL (130-400); RBC Distribution Width 14.1 % (11.5-14.5)
[2024-07-01 16:41] LABS: ALT (SGPT) 38 U/L (Less than 34); AST (SGOT) 56 U/L (11-34); Albumin 3.6 g/dL (3.1-4.5); Alkaline Phosphatase 86 U/L (40-110); Anion Gap 14 mmol/L (10-20); BUN (Urea Nitrogen) 10 mg/dL (9.8-20.1); Bilirubin, Total 0.7 mg/dL (0.3-1.2); Calc. Creatinine Clearance 0 mL/min (70-130); Calcium 8.8 mg/dL (7.8-10.44); Carbon Dioxide 27 mmol/L (23-31); Chloride 99 mmol/L (98-107); Estimated GFR 67; Globulin 3.6 g/dL (2.4-3.5); Glucose 106 mg/dL (80-115); Lipase 5 U/L (8-78); Potassium 4.3 mmol/L (3.5-5.1); Protein, Total 7.2 g/dL (5.8-8.1); Sodium 136 mmol/L (136-145)
[2024-07-01] MEDS ORDERED: Morphine 4 MG/ML VIAL ONE (20:03)
[2024-07-01 20:36] LABS: Bilirubin Negative (Negative); Blood, Urine Trace (Negative); CAUTI Indications for Culture Pelvic or flank pain; Clarity Clear (Clear); Glucose, Urine (Dipstick) Normal (Negative); Ketone, Urine Negative (Negative); Leukocyte 500 Leu/uL (Negative); Nitrite Negative (Negative); Protein, Urine (Dipstick) 30 mg/dL (Neg-Trace); Squamous Epithelial 0-3 HPF (0-3); Urobilinogen Normal mg/dL (Less than 2); WBC/HPF Greater than 50 HPF (0-3); pH, Urine 6.5 (5.0-9.0)
[2024-07-01 20:46] LABS: Bacteria/HPF 1+ HPF (None Seen); Specific Gravity, Urine 1.045 (1.002-1.036)
[2024-07-01 20:47] LABS: Urine Culture Reflex Yes Yes
[2024-07-01] MEDS ORDERED: Magnesium Citrate 300 ML BOT ONE (23:08)
== END 2024-07-01 23:20 | disposition home or self-care (01) ==
LOC: ERS 14:31
DX: K59.00 Constipation, unspecified (principal); Z87.891 Personal history of nicotine dependence
CPT/HCPCS: 36415; 74177; 80053; 81001; 83605; 83690; 85025; 87040; 87086; 96361; 96374; 96375; 96376; J2270

== ENCOUNTER 2024-07-03 12:26 | Inpatient (IN) | payer OTHER ==
[2024-07-03] MEDS ORDERED: Ondansetron PF 4 MG/2 ML Vial ONE (13:09)
[2024-07-03] MEDS ORDERED: Morphine 4 MG/ML VIAL ONE (13:09)
[2024-07-03] MEDS ORDERED: Iopamidol-370 76% 500 ML MDV (1 ML CHARGE) ONE (13:23)
[2024-07-03 13:46] LABS: Hematocrit 53.6 % (36.0-47.0); Hemoglobin 18.3 g/dL (12.0-16.0); Mean Corpuscular HGB CONC 34.1 g/dL (32.0-36.0); Mean Corpuscular Hemoglobin 30.2 pg (27.0-31.0); Mean Corpuscular Volume 88.4 fL (78.0-98.0); Red Blood Cell (RBC) Count 6.06 mill/uL (4.20-5.40)
[2024-07-03 13:47] LABS: #Basophils 0.04 10x3/uL (0.0-0.2); #Eosinophils Less than 0.03 10x3/uL (0.0-0.7); %Basophils 0.2 % (0.0-1.0); %Lymphocytes 4.8 % (21.0-51.0); %Monocytes 7.5 % (0.0-10.0); %Neutrophils 86.8 % (42.0-75.0); Mean Platelet Volume 9.4 fL (7.4-10.4); Platelet Count 184 10x3/uL (130-400); RBC Distribution Width 14.8 % (11.5-14.5)
[2024-07-03 14:28] LABS: ALT (SGPT) 23 U/L (Less than 34); AST (SGOT) 29 U/L (11-34); Albumin 2.6 g/dL (3.1-4.5); Alkaline Phosphatase 263 U/L (40-110); Anion Gap 20 mmol/L (10-20); BUN (Urea Nitrogen) 25 mg/dL (9.8-20.1); Bilirubin, Total 0.9 mg/dL (0.3-1.2); Calc. Creatinine Clearance 0 mL/min (70-130); Calcium 7.9 mg/dL (7.8-10.44); Carbon Dioxide 16 mmol/L (23-31); Chloride 107 mmol/L (98-107); Estimated GFR 45; Globulin 2.8 g/dL (2.4-3.5); Glucose 162 mg/dL (80-115); Lipase 4 U/L (8-78); Potassium 3.8 mmol/L (3.5-5.1); Protein, Total 5.4 g/dL (5.8-8.1); Sodium 139 mmol/L (136-145)
[2024-07-03 16:28] LABS: Clarity Hazy (Clear)
[2024-07-03] MEDS ORDERED: metroNIDAZOLE 500 MG (100 mL) BAG ONE (16:30)
[2024-07-03] MEDS ORDERED: LevoFLOXacin 750 mg/D5W 150 ml Premix Bag ONE (16:31)
[2024-07-03 16:32] LABS: Bilirubin Unable to Interpret (Negative); Blood, Urine Unable to Interpret (Negative); Glucose, Urine (Dipstick) Unable to Interpret mg/dL (Negative); Ketone, Urine Unable to Interpret mg/dL (Negative); Leukocyte Unable to Interpret Leu/uL (Negative); Nitrite Unable to Interpret (Negative); Protein, Urine (Dipstick) Unable to Interpret mg/dL (Neg-Trace); Specific Gravity, Urine 1.039 (1.002-1.036); Urobilinogen UNABLE TO INTERPRET mg/dL (Less than 2); pH, Urine 5.1 (5.0-9.0)
[2024-07-03 16:35] LABS: CAUTI Indications for Culture Acute Hematuria; RBC/HPF None Seen HPF (0-3); WBC/HPF 0-3 HPF (0-3)
[2024-07-03 16:36] LABS: Bacteria/HPF 1+ HPF (None Seen); Squamous Epithelial 0-3 HPF (0-3)
[2024-07-03 16:39] LABS: Urine Culture Reflex No No
[2024-07-03] MEDS ORDERED: Acetaminophen 325 MG TAB PO PRN (19:22)
[2024-07-03] MEDS: Lactated Ringer's 1,000 ML IV SCH (23:08)
[2024-07-03] MEDS: Apixaban 5 MG TAB PO SCH (23:10)
[2024-07-03] MEDS: Cefepime 1 GM in Sodium Chloride 0.9% 100 ML IVPB SCH (23:11)
[2024-07-04] MEDS: fentaNYL 25 mcg Patch TD SCH (00:14)
[2024-07-04] MEDS: Ondansetron PF 4 MG/2 ML Vial IVP PRN (00:40)
[2024-07-04] MEDS: HYDROcodone/Acetaminophen 10/325 mg Tablet PO PRN (01:24)
[2024-07-04] MEDS: metroNIDAZOLE 500 MG in Premix 1 BAG IVPB SCH (01:25)
[2024-07-04] MEDS: hydrALAZINE 20 MG/ML VIAL SLOW IVP SCH (01:26)
[2024-07-04 04:01] VITALS: BMI 24.6
[2024-07-04 05:52] LABS: #Basophils Less than 0.03 10x3/uL (0.0-0.2); #Eosinophils Less than 0.03 10x3/uL (0.0-0.7); %Basophils 0.3 % (0.0-1.0); %Lymphocytes 9.8 % (21.0-51.0); %Monocytes 12.3 % (0.0-10.0); %Neutrophils 77.3 % (42.0-75.0); Hematocrit 44.7 % (36.0-47.0); Hemoglobin 15.4 g/dL (12.0-16.0); Mean Corpuscular HGB CONC 34.5 g/dL (32.0-36.0); Mean Corpuscular Hemoglobin 29.7 pg (27.0-31.0); Mean Corpuscular Volume 86.1 fL (78.0-98.0); Mean Platelet Volume 9.3 fL (7.4-10.4); Platelet Count 220 10x3/uL (130-400); Red Blood Cell (RBC) Count 5.19 mill/uL (4.20-5.40)
[2024-07-04 06:17] LABS: Anion Gap 12 mmol/L (10-20); BUN (Urea Nitrogen) 26 mg/dL (9.8-20.1); Calc. Creatinine Clearance 53 mL/min (70-130); Calcium 7.7 mg/dL (7.8-10.44); Carbon Dioxide 22 mmol/L (23-31); Chloride 107 mmol/L (98-107); Estimated GFR 55; Glucose 134 mg/dL (80-115); Potassium 3.2 mmol/L (3.5-5.1); Sodium 138 mmol/L (136-145)
[2024-07-04] MEDS: Potassium Chloride 20 MEQ TAB PO SCH (08:52)
[2024-07-04] MEDS: Apixaban 5 MG TAB PO SCH (10:28)
[2024-07-04] MEDS: Potassium Chloride 20 MEQ in Premix 1 BAG IVPB SCH (12:18)
[2024-07-05] MEDS: ALPRAZolam 0.5 MG TAB PO PRN (01:21)
[2024-07-05 07:25] LABS: Campy jejuni + coli by PCR Negative (Negative); STEC Shiga Toxin 1+2 Negative (Negative); Salmonella spp. by PCR Negative (Negative); Shigella spp + EIEC by PCR Negative (Negative)
[2024-07-05] MEDS: Levothyroxine Sodium 100 MCG TAB PO SCH (08:07)
[2024-07-05] MEDS: Potassium Chloride 20 MEQ in Premix 1 BAG IVPB SCH (09:19)
[2024-07-05] MEDS: Ondansetron ODT 4 MG TAB PO PRN (09:49)
[2024-07-05 10:46] LABS: #Basophils Less than 0.03 10x3/uL (0.0-0.2); %Basophils 0.2 % (0.0-1.0); %Eosinophils 0.7 % (0.0-10.0); %Lymphocytes 11.4 % (21.0-51.0); %Monocytes 11.2 % (0.0-10.0); Hematocrit 37.7 % (36.0-47.0); Hemoglobin 12.6 g/dL (12.0-16.0); Mean Corpuscular HGB CONC 33.4 g/dL (32.0-36.0); Mean Corpuscular Hemoglobin 30.2 pg (27.0-31.0); Mean Corpuscular Volume 90.4 fL (78.0-98.0); Mean Platelet Volume 9.6 fL (7.4-10.4); Platelet Count 165 10x3/uL (130-400); RBC Distribution Width 15.5 % (11.5-14.5); Red Blood Cell (RBC) Count 4.17 mill/uL (4.20-5.40)
[2024-07-05 11:18] LABS: Chloride 109 mmol/L (98-107); Potassium 3.6 mmol/L (3.5-5.1); Sodium 136 mmol/L (136-145)
[2024-07-05 11:19] LABS: Calcium 7.8 mg/dL (7.8-10.44); Glucose 104 mg/dL (80-115)
[2024-07-05 11:21] LABS: Anion Gap 9 mmol/L (10-20); Carbon Dioxide 22 mmol/L (23-31)
[2024-07-05 11:23] LABS: BUN (Urea Nitrogen) 15 mg/dL (9.8-20.1); Calc. Creatinine Clearance 60 mL/min (70-130); Estimated GFR 65
[2024-07-05 11:24] LABS: Magnesium 1.8 mg/dL (1.6-2.6)
[2024-07-05] MEDS: Sodium Bicarbonate Tab 325 MG TAB PO SCH (15:16)
[2024-07-06 06:23] LABS: #Basophils Less than 0.03 10x3/uL (0.0-0.2); %Basophils 0.2 % (0.0-1.0); %Eosinophils 1.5 % (0.0-10.0); %Lymphocytes 20.8 % (21.0-51.0); %Monocytes 9.7 % (0.0-10.0); %Neutrophils 67.1 % (42.0-75.0); Hematocrit 34.7 % (36.0-47.0); Hemoglobin 11.4 g/dL (12.0-16.0); Mean Corpuscular HGB CONC 32.9 g/dL (32.0-36.0); Mean Corpuscular Volume 91.3 fL (78.0-98.0); Mean Platelet Volume 9.9 fL (7.4-10.4); Platelet Count 133 10x3/uL (130-400); RBC Distribution Width 15.6 % (11.5-14.5)
[2024-07-06 06:31] LABS: Anion Gap 8 mmol/L (10-20); BUN (Urea Nitrogen) 8 mg/dL (9.8-20.1); Calc. Creatinine Clearance 67 mL/min (70-130); Calcium 7.6 mg/dL (7.8-10.44); Carbon Dioxide 25 mmol/L (23-31); Chloride 109 mmol/L (98-107); Estimated GFR 73; Glucose 73 mg/dL (80-115); Magnesium 1.7 mg/dL (1.6-2.6); Potassium 3.2 mmol/L (3.5-5.1); Sodium 139 mmol/L (136-145)
[2024-07-06] MEDS: Magnesium 2 GM/50 ML(in water) 2 GM in Premix 1 BAG IVPB SCH (09:24)
[2024-07-06] MEDS: Potassium Chloride 20 MEQ in Premix 1 BAG IVPB SCH (09:24)
[2024-07-07] MEDS: diphenhydrAMINE 50 MG/ML VIAL IVP SCH (01:17)
[2024-07-07] MEDS ORDERED: Electrolyte Replacement Protocol 1 EACH FS PRN (03:30)
[2024-07-07 04:19] LABS: #Basophils 0.03 10x3/uL (0.0-0.2); %Basophils 0.5 % (0.0-1.0); %Lymphocytes 20.8 % (21.0-51.0); %Monocytes 10.6 % (0.0-10.0); %Neutrophils 64.8 % (42.0-75.0); Hemoglobin 13.8 g/dL (12.0-16.0); Mean Corpuscular HGB CONC 32.9 g/dL (32.0-36.0); Mean Corpuscular Hemoglobin 29.4 pg (27.0-31.0); Mean Corpuscular Volume 89.4 fL (78.0-98.0); Mean Platelet Volume 9.5 fL (7.4-10.4); Platelet Count 164 10x3/uL (130-400); RBC Distribution Width 15.2 % (11.5-14.5)
[2024-07-07 04:38] LABS: Anion Gap 11 mmol/L (10-20); BUN (Urea Nitrogen) 6 mg/dL (9.8-20.1); Calc. Creatinine Clearance 59 mL/min (70-130); Calcium 8.1 mg/dL (7.8-10.44); Carbon Dioxide 31 mmol/L (23-31); Chloride 105 mmol/L (98-107); Estimated GFR 63; Glucose 84 mg/dL (80-115); Magnesium 1.8 mg/dL (1.6-2.6); Potassium 3.3 mmol/L (3.5-5.1); Sodium 144 mmol/L (136-145)
[2024-07-07] MEDS: Magnesium 2 GM/50 ML(in water) 2 GM in Premix 1 BAG IVPB SCH (08:43)
[2024-07-07] MEDS: Potassium Chloride 20 MEQ TAB PO SCH ×2 (08:44→15:00)
[2024-07-07] MEDS ORDERED: Preparation H Suppository PR PRN (13:28)
[2024-07-07] MEDS: FLU (Fluarix Triv) TS24-25(6MOS UP)/PF 45 MCG/0.5 ML Syringe IM ONE (16:10)
[2024-07-07 16:31] VITALS: BP 128/78; TEMP 98.6
[2024-07-07] MEDS ORDERED: fentaNYL 25 mcg Patch TD SCH (22:00)
== END 2024-07-07 16:52 | disposition home or self-care (01) | DRG 392 ==
LOC: ERS 12:26 → T4-B 17:25
PROVIDERS: ADMIT Student in an Organized Health Care Education/Training Program; ATTEND Internal Medicine
DX: K52.9 Noninfective gastroenteritis and colitis, unspecified (principal); N17.9 Acute kidney failure, unspecified; E87.20 Acidosis, unspecified; D84.9 Immunodeficiency, unspecified; F41.9 Anxiety disorder, unspecified; D64.9 Anemia, unspecified; D72.829 Elevated white blood cell count, unspecified; Z66 Do not resuscitate; Z88.0 Allergy status to penicillin; Z88.8 Allergy status to other drugs, medicaments and biological substances; Z98.891 History of uterine scar from previous surgery; Z90.49 Acquired absence of other specified parts of digestive tract; Z98.890 Other specified postprocedural states; Z87.891 Personal history of nicotine dependence
CPT/HCPCS: 36415; 70450; 74177; 80048; 80053; 81001; 83605; 83690; 83735; 85025; 87040; 87077; 87086; 87149; 87324; 87449; 87505; 90656; 96361; 96374; 96375; 96376; J0360; J0692; J1200; J1642; J1956; J2270; J2405; J3475; J3480; J7120; Q0162; Q9967

== ENCOUNTER 2024-07-31 10:15 | Outpatient (CLI) | payer OTHER | END 2024-07-31 10:16 | disposition home or self-care (01) | LOC: PET 10:15 | PROVIDERS: ATTEND Internal Medicine | DX: C54.8 Malignant neoplasm of overlapping sites of corpus uteri (principal); K76.9 Liver disease, unspecified; M89.9 Disorder of bone, unspecified; N13.30 Unspecified hydronephrosis; Z79.899 Other long term (current) drug therapy | CPT/HCPCS: 78815; A9552 ==